=== PATIENT | male | born 1975 | race Caucasian/White ===

== ENCOUNTER → 2016-09-20 | Outpatient (CLI) | payer OTHER ==
[~2016-09-20] MED LIST: ATOR-26 PO; BUPR150T7 PO; ERGO500037 PO; GLC/500 PO; HYDR25TA4 PO; LEVO175T3 PO; LOSA25TA18 PO; OMEG10007 PO; OXYC1TAB3 PO; PRAM0.256 PO; TAMS0.4C38 PO
[2016-09-20 17:54] LABS: ALT/SGPT 46 U/L (12-78); BLOOD UREA NITROGEN 13 mg/dl (7-18); BUN/CREATININE RATIO 12.2 (10-20); CALCIUM 9.2 mg/dl (8.5-10.1); CARBON DIOXIDE 20 mmol/L (21-32); CHLORIDE 107 mmol/L (98-107); CHOLESTEROL 158 mg/dl (0-200); GLUCOSE 104 mg/dl (70-99); POTASSIUM 4.2 mmol/L (3.5-5.1); SODIUM 139 mmol/L (136-145); TRIGLYCERIDES 159 mg/dl (0-150); VERY LOW DENSITY LIPOPROT CALC 32 mg/dl
[2016-09-20 17:57] LABS: ALKALINE PHOSPHATASE 82 U/L (45-117); AST/SGOT 24 U/L (15-37); HDL CHOLESTEROL 40 mg/dl; LDL CHOLESTEROL CALCULATED 86 mg/dl
[2016-09-21 06:52] LABS: ESTIMATED AVERAGE GLUCOSE 140 mg/dl; HA1C FLAG Normal (Normal)
== END | disposition home or self-care (01) ==
LOC: C.LABBFT 11:51
PROVIDERS: ATTEND Internal Medicine
DX: E11.9 Type 2 diabetes mellitus without complications (principal); E78.5 Hyperlipidemia, unspecified; N52.9 Male erectile dysfunction, unspecified; Z30.2 Encounter for sterilization

== ENCOUNTER → 2016-09-20 | Outpatient (CLI) | payer OTHER | END | disposition home or self-care (01) | LOC: C.PATHSPEC 17:32 | PROVIDERS: ATTEND Urology | DX: Z30.2 Encounter for sterilization (principal) ==

== ENCOUNTER → 2017-01-16 | Day surgery (SDC) | payer OTHER ==
[2017-01-08 13:18] VITALS: Ht 190.5 cm; Wt 149.1 kg
[~2017-01-16] VITALS: Ht 190.5 cm; Wt 149.1 kg
[~2017-01-16] MED LIST changes: +LIDOCAINE HCL 2% 2 ML VIAL (20MG/ML) ONE; +MIDAZOLAM HCL 1 MG/ML 2ML VIAL ONE; +PROPOFOL IV EMULSION 10 MG/ML 20 ML VIAL IV ONE; +SODIUM CHLORIDE 0.9% 500ML 500 ML IV ONE
--- NOTE | 2017-01-16 08:31 | Endo History and Physical ---
History & Physical Date of Service: January 16, 2017. Chief Complaint: Screening Referring Physician: Dharmesh Ennis History of Present Illness 41 yo CM who presents for screening colonoscopy. Past Surgical History Hx Cardiac Surgery: No Hx Internal Defibrillator: No Hx Pacemaker: No Hx Abdominal Surgery: No Hx of Implantable Prosthesis: No Hx Post-Op Nausea and Vomiting: Yes Hx Cancer Surgery: No Hx Thoracic Surgery: No Hx Orthopedic: Yes (RT KNEE ARTHROSCOPY X 3, LEFT KNEE ARTHROSCOPY) Hx Urinary Tract Surgery: No Family History Polyp Social History Smoking Status: Never Smoker Hx Substance Use: No Hx Alcohol Use: No Allergies Coded Allergies: NO KNOWN DRUG ALLERGIES (Verified Allergy, Unknown, ., 01/08/17) Current Medications Reported Home Medications Medications Dose Route/Sig Max Daily Dose Days Date Category Vitamin D 40019 Unit (Ergocalciferol) 50,000 Unit Cap 50,000 Unit PO WK 01/08/17 Reported Pramipexole Dihydrochlori (Pramipexole Dihydrochloride) 0.25 Mg Tab 1 Tab PO HS 01/08/17 Reported Glucophage (Metformin Hcl) 500 Mg Tab 2 Tab PO BID 01/08/17 Reported Levothyroxine Sodium 175 Mcg Tab 1 Tab PO QAM 90 01/08/17 Reported Hctz (Hydrochlorothiazide) 25 Mg Tab 25 Mg PO QAM 01/08/17 Reported Wellbutrin Sr (Bupropion Hcl) 150 Mg Tab 150 Mg PO QAM 01/08/17 Reported Lipitor (Atorvastatin Calcium) 80 Mg Tab 80 Mg PO HS 01/08/17 Reported Vital Signs Weight (Kilograms): 149.09 Height (Feet): 6 Height (Inches): 3 Date Time Temp Pulse Resp B/P Pulse Ox O2 Delivery O2 Flow Rate FiO2 01/16/17 07:51 36.3 75 20 130/79 95 Room Air Physical Exam General Appearance: WD/WN, no apparent distress Respiratory/Chest: Auscultation: breath sounds normal Cardiovascular: Heart Auscultation: RRR Abdomen: Bowel Sounds: normal Inspection & Palpation: soft, non-distended, no tenderness, guarding & rebound Assessment and Plan Assessment: 41 yo CM who presents for screening colonoscopy. Plan: Proceed with colonoscopy.
--- NOTE | 2017-01-16 08:57 | GI REPORT ---
Procedure Date: 01/16/2017 8:33 AM Procedure: Colonoscopy Indications: Family history of colonic polyps in a first-degree relative Medicines: Monitored Anesthesia Care Complications: No immediate complications. Estimated Blood Loss: Estimated blood loss: none. Procedure: Pre-Anesthesia Assessment: - Prior to the procedure, a History and Physical was performed, and patient medications and allergies were reviewed. The patient's tolerance of previous anesthesia was also reviewed. The risks and benefits of the procedure and the sedation options and risks were discussed with the patient. All questions were answered, and informed consent was obtained. Prior Anticoagulants: The patient has taken no previous anticoagulant or antiplatelet agents. ASA Grade Assessment: III - A patient with severe systemic disease. After reviewing the risks and benefits, the patient was deemed in satisfactory condition to undergo the procedure. After I obtained informed consent, the scope was passed under direct vision. Throughout the procedure, the patient's blood pressure, pulse, and oxygen saturations were monitored continuously. The scope was introduced through the anus and advanced to the terminal ileum. The colonoscopy was performed without difficulty. The patient tolerated the procedure well. The quality of the bowel preparation was good. The terminal ileum, ileocecal valve, appendiceal orifice, and rectum were photographed. Findings: A 4 mm polyp was found in the ascending colon. The polyp was sessile. The polyp was removed with a cold snare. Resection and retrieval were complete. Scattered small-mouthed diverticula were found in the entire colon. Impression: - One 4 mm polyp in the ascending colon, removed with a cold snare. Resected and retrieved. - Diverticulosis in the entire examined colon. Recommendation: - Resume previous diet. - Continue present medications. - Repeat colonoscopy for surveillance based on pathology results. - Return to primary care physician as previously scheduled. Dwaine Ott DO 01/16/2017 8:56:55 AM This report has been signed electronically. Note Initiated On: 01/16/2017 8:33 AM I attest to the content of the Intraoperative Record and orders documented therein, exceptions below
--- NOTE | 2017-01-16 08:58 | Discharge Instructions ---
Endoscopy Patient Instructions Date / Procedure(s) Performed January 16, 2017. Colonoscopy Allergy Information Coded Allergies: NO KNOWN DRUG ALLERGIES (Verified Allergy, Unknown, ., 01/08/17) Discharge Date / Findings January 16, 2017. Colon polyp Diverticulosis Medication Instructions Stopped Medication(s): Metformin Reported Home Medications Medications Dose Route/Sig Max Daily Dose Days Date Category Vitamin D 69314 Unit (Ergocalciferol) 50,000 Unit Cap 50,000 Unit PO WK 01/08/17 Reported Pramipexole Dihydrochlori (Pramipexole Dihydrochloride) 0.25 Mg Tab 1 Tab PO HS 01/08/17 Reported Glucophage (Metformin Hcl) 500 Mg Tab 2 Tab PO BID 01/08/17 Reported Levothyroxine Sodium 175 Mcg Tab 1 Tab PO QAM 90 01/08/17 Reported Hctz (Hydrochlorothiazide) 25 Mg Tab 25 Mg PO QAM 01/08/17 Reported Wellbutrin Sr (Bupropion Hcl) 150 Mg Tab 150 Mg PO QAM 01/08/17 Reported Lipitor (Atorvastatin Calcium) 80 Mg Tab 80 Mg PO HS 01/08/17 Reported OK to resume all medications today as prescribed Provider Instructions Activity Restrictions - No exercising or heavy lifting for 24 hours. - Do not drink alcohol the day of the procedure. - Do not drive a car or operate machinery until the day after the procedure. - Do not make any important decisions or sign important papers in 24 hours after the procedure. Following Day: - Return to full activity which may include returning to work/school. Diet Start your diet with liquids and light foods (jello, soup, juice, toast). Then eat your usual diet if not nauseated. Treatment For Common After Affects For mild abdominal pain, bloating, or excessive gas: - Rest - Eat lightly - Lie on right side Follow-Up Information Follow-up with Dharmesh Ennis as scheduled Anesthesia Information What You Should Know You have had a procedure that required some medicine to reduce anxiety and discomfort. This treatment is called moderate sedation. After receiving the treatment, you may be sleepy, but you will be able to breathe on your own. The effects of the treatment may last for several hours. Follow these instructions along with Activity/Diet recommendations noted above: * Do NOT do anything where dizziness or clumsiness would be dangerous. * Rest quietly at home today, then you can be up and about tomorrow. * Have a responsible person stay with you the rest of today. * You may have had an I.V. today. If so, you may take the dressing off later today. Recommendations Call your doctor if: * Trouble breathing * Continuous vomiting for more than 24 hours * Temperature above 101 degrees * Severe abdominal pain or bloating * Pain not relieved by pain medicine ordered * There is increased drainage or redness from any incision * A large amount of rectal bleeding greater than 2-3 tablespoons. (If you had a polyp/s removed or have hemorrhoids, a small amount of blood - from the rectum is to be expected.) * You have any unanswered questions or concerns. IN THE EVENT OF A SERIOUS EMERGENCY, GO TO THE NEAREST EMERGENCY ROOM Your discharge instructions were prepared by provider Dwaine Ott. Patient Instructions Signature Page [employer] [employer] Patient (or Guardian) Signature/Date: I have read and understand the instructions given to me by my caregivers. Caregiver/RN/Doctor Signature/Date: The above-named patient and/or guardian has received patient instructions on this date. + Original Patient Signature Page (only) stays with chart. Please make copy for patient.
--- NOTE | 2017-01-16 09:14 | Anesthesiology Progress Note ---
Anesthesia Post Op Note Date & Time January 16, 2017 at 09:14 Vital Signs Vital Signs Past 12 Hours Date Time Temp Pulse Resp B/P Pulse Ox O2 Delivery O2 Flow Rate FiO2 01/16/17 08:58 36.8 90 20 119/74 95 Room Air 01/16/17 07:51 36.3 75 20 130/79 95 Room Air Notes Mental Status: alert / awake / arousable, participated in evaluation Pt Amnestic to Procedure: Yes Nausea / Vomiting: adequately controlled Pain: adequately controlled Airway Patency, RR, SpO2: stable & adequate BP & HR: stable & adequate Hydration State: stable & adequate Anesthetic Complications: no major complications apparent
[2017-01-16 09:29] VITALS: BP 122/83; PULSE 84; O2SAT 96
== END | disposition home or self-care (01) ==
LOC: C.GI 07:01
PROVIDERS: ATTEND Internal Medicine
DX: Z12.11 Encounter for screening for malignant neoplasm of colon (principal); D12.2 Benign neoplasm of ascending colon; K57.30 Diverticulosis of large intestine without perforation or abscess without bleeding; Z83.71 Family history of colonic polyps

== ENCOUNTER → 2017-02-15 | Outpatient (CLI) | payer OTHER ==
[~2017-02-15] MED LIST changes: -LIDOCAINE HCL 2% 2 ML VIAL (20MG/ML) ONE; -MIDAZOLAM HCL 1 MG/ML 2ML VIAL ONE; -PROPOFOL IV EMULSION 10 MG/ML 20 ML VIAL IV ONE; -SODIUM CHLORIDE 0.9% 500ML 500 ML IV ONE
[2017-02-15 12:37] LABS: ALT/SGPT 30 U/L (12-78); AST/SGOT 16 U/L (15-37); BLOOD UREA NITROGEN 12 mg/dl (7-18); BUN/CREATININE RATIO 11.9 (10-20); CALCIUM 9.1 mg/dl (8.5-10.1); CARBON DIOXIDE 25 mmol/L (21-32); CHLORIDE 106 mmol/L (98-107); CHOLESTEROL 119 mg/dl (0-200); CREATININE 0.99 mg/dl (0.60-1.40); GLUCOSE 123 mg/dl (70-99); POTASSIUM 3.9 mmol/L (3.5-5.1); SODIUM 138 mmol/L (136-145); TRIGLYCERIDES 93 mg/dl (0-150); VERY LOW DENSITY LIPOPROT CALC 19 mg/dl
[2017-02-15 12:50] LABS: ESTIMATED AVERAGE GLUCOSE 128 mg/dl; HA1C FLAG Normal (Normal)
[2017-02-15 13:03] LABS: ALKALINE PHOSPHATASE 82 U/L (45-117); CHOLESTEROL/HDL RATIO 3.1; HDL CHOLESTEROL 38 mg/dl; LDL CHOLESTEROL CALCULATED 62 mg/dl; TOTAL IRON BINDING CAPACITY 344 mcg/dl (250-450)
[2017-02-19 16:31] LABS: ILGF1 Z SCORE MALE 0.4 SD (-2.0 - +2.0)
== END | disposition home or self-care (01) ==
LOC: C.LABBFT 08:57
PROVIDERS: ATTEND Internal Medicine
DX: G25.81 Restless legs syndrome (principal); E29.1 Testicular hypofunction; E66.01 Morbid (severe) obesity due to excess calories; M79.1 Myalgia; E03.9 Hypothyroidism, unspecified; E11.9 Type 2 diabetes mellitus without complications

== ENCOUNTER 2017-03-03 09:15 | Inpatient (IN) | payer OTHER ==
[~2017-03-03] VITALS: Ht 190.5 cm; Wt 151.2 kg
[~2017-03-03 09:15] MED LIST changes: -LOSA25TA18 PO; -OMEG10007 PO; -OXYC1TAB3 PO; -TAMS0.4C38 PO
[2017-03-03] MEDS ORDERED: LOSA25TA18 PO (10:05)
[2017-03-03] MEDS ORDERED: SODIUM CHLORIDE 0.9% 1000ML 1,000 ML IV STA ×2 (10:12)
[2017-03-03] MEDS ORDERED: ONDANSETRON INJ 2 MG/ML 2 ML VIAL IV STA (10:12)
[2017-03-03 10:19] LABS: BASO % 0.3 %; BASO ABS # 0.02 K/uL (0-0.2); COMPLETE YES; IG% 0.3 %; LYMPH % 15.1 %; MEAN CELL VOLUME 82.4 fL (80-100); MEAN CORPUSCULAR HEMOGLOBIN 27.6 pg (25-34); MEAN CORPUSCULAR HGB CONC 33.5 g/dl (32-36); MEAN PLATELET VOLUME 9.3 fL (7.4-10.4); MONO % 4.5 %; NEUT % 76.8 %; PLATELET COUNT 224 K/uL (130-400); RED BLOOD COUNT 5.22 M/uL (4.7-6.1); WHITE BLOOD COUNT 7.93 K/uL (4.8-10.8)
[2017-03-03 10:22] LABS: URINE APPEARANCE TURBID (CLEAR); URINE COLOR DK YELLOW; URINE EPITHELIAL CELL AUTO 0-5 /lpf (0-5); URINE NITRITE NEG (NEG); URINE SPECIFIC GRAVITY 1.027 (1.000-1.030); UROBILINOGEN NEG (NEG); ZZUR CULT IF INDIC CLEAN CATCH NO
[2017-03-03 10:26] LABS: BUN/CREATININE RATIO 9.9 (10-20); CREATININE 1.1 mg/dl (0.60-1.40); POTASSIUM 4.2 mmol/L (3.5-5.1)
--- NOTE | 2017-03-03 10:26 | EMERGENCY ROOM VISIT NOTE ---
History Report prepared by Kimberly: Ronda Ruiz Under the Supervision of: Dr. Avni Patiño D.O. First contact with patient: 10:09 Chief Complaint: FLANK PAIN Stated Complaint: PAIN R FLANK PAIN History of Present Illness The patient is a 41 year old male who presents to the Emergency Room with complaints of persistent right flank pain starting 0630 this morning. He rates his discomfort as an 8/10 in severity. His had pain in the RUQ at first, but it seems to have moved into his back. He reports nausea. He denies any vomiting, chest pain, SOB, or fever. His urine was dark like ice tea today. He notes that he did eat some unhealthy food at a fair last night. He admits to occasional alcohol use. He denies any tobacco use. He has not had any abdominal surgeries before. He still has his gallbladder. He denies any history of kidney stones. Source of History: patient Onset: 0630 this morning Position: other (right flank) Symptom Intensity: 8/10 Quality: other (pain) Timing: other (persistent) Associated Symptoms: + nausea, No fevers, No chest pain, No SOB, No vomiting Note: Pt reports dark urine. Review of Systems See HPI for pertinent positives & negatives. A total of 10 systems reviewed and were otherwise negative. Past Medical & Surgical Medical Problems: (1) Diabetes (2) Hydronephrosis, right (3) Hypertension (4) Right ureteral calculus Family History Cancer Diabetes mellitus Gallbladder disease Social History Smoking Status: Never Smoker Marital Status: Housing Status: lives with family Occupation Status: disabled Current/Historical Medications Scheduled Atorvastatin (Lipitor), 80 MG PO HS Bupropion Hcl (Wellbutrin Sr), 150 MG PO QAM Ergocalciferol (Vitamin D 45170 Unit), 50,000 UNIT PO WK Levothyroxine Sodium (Levothyroxine Sodium), 1 TAB PO QAM Losartan Potassium (Cozaar), 25 MG PO DAILY Metformin Hcl (Glucophage), 2 TAB PO BID Pramipexole Dihydrochloride (Pramipexole Dihydrochlori), 1 TAB PO HS Tamsulosin Hcl (Flomax), 0.4 MG PO DAILY Scheduled PRN Oxycodone Immediate Rel Tab (Roxicodone Ir), 1-2 TAB PO Q4H PRN for Severe Pain Allergies Coded Allergies: NO KNOWN DRUG ALLERGIES (Verified Allergy, Unknown, ., 03/03/17) Physical Exam Vital Signs Date Time Temp Pulse Resp B/P (MAP) Pulse Ox O2 Delivery O2 Flow Rate FiO2 03/03/17 13:40 99 Room Air 03/03/17 13:15 61 18 124/71 99 Room Air 03/03/17 11:00 64 18 131/90 96 Room Air 03/03/17 09:29 36.4 72 18 157/89 96 Room Air Physical Exam GENERAL: Patient is awake, alert, and very anxious appearing and uncomfortable , appears to be in moderate pain. EYES: The conjunctivae are clear. The pupils are round and reactive. EARS, NOSE, MOUTH AND THROAT: The nose is without any evidence of any deformity. Mucous membranes are moist tongue is midline NECK: The neck is nontender and supple. RESPIRATORY: Normal respiratory effort is noted there is no evidence of wheezing rhonchi or rales CARDIOVASCULAR: Regular rate and rhythm noted there no murmurs rubs or gallops normal S1 normal S2 GASTROINTESTINAL: The abdomen is moderately distended but soft, significant RUQ tenderness to palpation, no guarding or rigidity. BACK: No midline tenderness or or step-off noted range of motion in flexion extension as well as rotation no signs of muscle spasm noted MUSCULOSKELETAL/EXTREMITIES: There is no evidence of gross deformity full range of motion is noted in the hips and shoulders SKIN: There is no obvious evidence of any rash. There are no petechiae, pallor or cyanosis noted. NEUROLOGIC: Patient is awake alert and oriented x3 Medical Decision & Procedures ER Provider Diagnostic Interpretation: Radiology results as stated below per my review and radiologist interpretation: CT SCAN OF THE ABDOMEN AND PELVIS WITHOUT IV CONTRAST CLINICAL HISTORY: Right flank pain. COMPARISON STUDY: Abdominal ultrasound dated 07/12/2014. TECHNIQUE: CT scan of the abdomen and pelvis is performed from the lung bases to the proximal femora. Images are reviewed in the axial, sagittal, and coronal planes. IV contrast was not administered for this examination. Automated dose control exposure was utilized. CT DOSE: 1865.77 mGy.cm FINDINGS: Lung bases: The heart is normal in size and without pericardial effusion. A tiny calcified granulomas in the right lower lobe. The lung bases are otherwise clear. There is a tiny hiatal hernia. Liver: The unenhanced liver is enlarged, measuring 19.4 cm in length. The liver demonstrates diffusely diminished attenuation consistent with hepatic steatosis. Fatty sparing is seen adjacent to gallbladder fossa. There is no intrahepatic biliary ductal dilatation. Gallbladder: Unremarkable. Spleen: The spleen is enlarged measuring 14.8 cm in length. Pancreas: The unenhanced pancreas is grossly unremarkable. Adrenal glands: Unremarkable. Kidneys: The unenhanced kidneys are normal in size. There is a 9 mm obstructing calculus in the right proximal ureter at the level of L3 seen on axial image #242. This causes mild right hydroureteronephrosis, and there is associated right-sided perinephric stranding. An additional 6 mm nonobstructing calculus is seen in the right lower pole. There is a 4 mm nonobstructing left calculus. No left-sided hydronephrosis is seen. There is no evidence of contour deforming renal mass lesion. Abdominal vasculature: The abdominal aorta is normal in course and caliber. Bowel: The small bowel and colon are normal in course and caliber. There is moderate to advanced diverticulosis of the left colon without CT evidence of acute diverticulitis. The appendix is well-visualized and normal. Peritoneum: There is no intraperitoneal free air or abdominal ascites. There is a small fat-containing umbilical hernia. Lymphadenopathy: None. Pelvic viscera: The bladder, prostate, and seminal vesicles are normal as visualized. Skeletal structures: No lytic or blastic lesions are seen. IMPRESSION: 1. There is a 9 mm obstructing calculus in the right proximal ureter. This causes mild right hydroureteronephrosis. 2. Additional bilateral nonobstructing renal calculi are identified as above. 3. Hepatomegaly and hepatic steatosis. 4. Splenomegaly. 5. There is moderate to advanced diverticulosis of the left colon without CT evidence of acute diverticulitis. Electronically signed by: Cadnido Millan M.D. 03/03/2017 11:07 AM Dictated Date/Time: 03/03/2017 10:57 AM Laboratory Results 03/03/17 09:45 Red Blood Count 5.22, Mean Corpuscular Volume 82.4, Mean Corpuscular Hemoglobin 27.6, Mean Corpuscular Hemoglobin Concent 33.5, Mean Platelet Volume 9.3, Neutrophils (%) (Auto) 76.8, Lymphocytes (%) (Auto) 15.1, Monocytes (%) (Auto) 4.5, Eosinophils (%) (Auto) 3.0, Basophils (%) (Auto) 0.3, Neutrophils # (Auto) 6.09, Lymphocytes # (Auto) 1.20, Monocytes # (Auto) 0.36, Eosinophils # (Auto) 0.24, Basophils # (Auto) 0.02 03/03/17 09:45 Test 03/03/17 00:00 03/03/17 09:45 03/03/17 09:49 Urine Color DK YELLOW Urine Appearance TURBID (CLEAR) Urine pH 5.0 (4.5-7.5) Urine Specific [place] 1.027 (1.000-1.030) Urine Protein 1+ (NEG) Urine Glucose (UA) NEG (NEG) Urine Ketones TRACE (NEG) Urine Occult Blood 3+ (NEG) Urine Nitrite NEG (NEG) Urine Bilirubin NEG (NEG) Urine Urobilinogen NEG (NEG) Urine Leukocyte Esterase TRACE (NEG) Urine WBC (Auto) 1-5 /hpf (0-5) Urine RBC (Auto) 5-10 /hpf (0-4) Urine Hyaline Casts (Auto) 1-5 /lpf (0-5) Urine Epithelial Cells (Auto) 0-5 /lpf (0-5) Urine Bacteria (Auto) NEG (NEG) Urine Crystals CALCIUM OXALATE (NONE White Blood Count 7.93 K/uL (4.8-10.8) Red Blood Count 5.22 M/uL (4.7-6.1) Hemoglobin 14.4 g/dL (14.0-18.0) Hematocrit 43.0 % (42-52) Mean Corpuscular Volume 82.4 fL (80-100) Mean Corpuscular Hemoglobin 27.6 pg (25-34) Mean Corpuscular Hemoglobin Concent 33.5 g/dl (32-36) Platelet Count 224 K/uL (130-400) Mean Platelet Volume 9.3 fL (7.4-10.4) Neutrophils (%) (Auto) 76.8 % Lymphocytes (%) (Auto) 15.1 % Monocytes (%) (Auto) 4.5 % Eosinophils (%) (Auto) 3.0 % Basophils (%) (Auto) 0.3 % Neutrophils # (Auto) 6.09 K/uL (1.4-6.5) Lymphocytes # (Auto) 1.20 K/uL (1.2-3.4) Monocytes # (Auto) 0.36 K/uL (0.11-0.59) Eosinophils # (Auto) 0.24 K/uL (0-0.5) Basophils # (Auto) 0.02 K/uL (0-0.2) RDW Standard Deviation 41.5 fL (36.4-46.3) RDW Coefficient of Variation 13.7 % (11.5-14.5) Immature Granulocyte % (Auto) 0.3 % Immature Granulocyte # (Auto) 0.02 K/uL (0.00-0.02) Anion Gap 7.0 mmol/L (3-11) Est Creatinine Clear Calc Drug Dose 139.0 ml/min Estimated GFR () 96.1 Estimated GFR (Non- 82.9 BUN/Creatinine Ratio 9.9 (10-20) Calcium Level 9.0 mg/dl (8.5-10.1) Total Bilirubin 0.6 mg/dl (0.2-1) Aspartate Amino Transf (AST/SGOT) 14 U/L (15-37) Alanine Aminotransferase (ALT/SGPT) 26 U/L (12-78) Alkaline Phosphatase 86 U/L (45-117) Total Protein 7.6 gm/dl (6.4-8.2) Albumin 3.8 gm/dl (3.4-5.0) Globulin 3.8 gm/dl (2.5-4.0) Albumin/Globulin Ratio 1.0 (0.9-2) Lipase 131 U/L (73-393) Hepatitis B Surface Antigen NEG (NEG) Bedside Glucose 106 mg/dl (70-99) Laboratory results per my review. Medications Administered Medications (Trade) Dose Ordered Sig/Miguel A Route Start Time Stop Time Status Last Admin Dose Admin Sodium Chloride 1,000 ml @ 999 mls/hr Q1H1M STAT IV 03/03/17 10:12 03/03/17 11:12 DC 03/03/17 10:12 999 MLS/HR Morphine Sulfate (MoRPHine SULFATE INJ) 4 mg Q15M PRN IV 03/03/17 10:15 03/03/17 16:19 DC 03/03/17 15:03 4 MG Ondansetron HCl (Zofran Inj) 4 mg NOW STAT IV 03/03/17 10:12 03/03/17 10:13 DC 03/03/17 10:12 4 MG Tamsulosin HCl (Flomax Cap) 0.4 mg NOW ONCE PO 03/03/17 13:00 03/03/17 13:01 DC 03/03/17 13:10 0.4 MG ECG Indication: back/shoulder pain, nausea Rate (beats per minute): 70 Rhythm: normal sinus Findings: no ectopy, other (no acute ST segment abnormality) Comparison ECG Date: no prior available ED Course 1010: The patient was evaluated in room C9. A complete history and physical examination were performed. 1012: Zofran Inj 4 mg IV, NSS 1000 ml @ 125 mls/hr IV, NSS 1000 ml @ 999 mls/hr IV. 1015: Morphine Sulfate 4 mg IV. 1300: Flomax Cap 0.4 mg PO. 1305: I discussed the patient's case with Dr. Mclaughlin [facility] urology. He recommends outpatient follow up. 1315: I reevaluated the patient. He is having more pain and not feeling up to going home. I discussed results and treatment plan with him. He verbalizes agreement and understanding. The patient will be evaluated for further management and care. 1415: I discussed the patient's case with Dr. Garduno, [facility] hospitalist. The patient will be evaluated for further management. Medical Decision Prior records/ancillary studies reviewed. Triage Nursing notes reviewed. Additional history obtained from family. The patient's history was concerning for abdominal pain. Differential diagnosis: Etiologies such as appendicitis, diverticulitis, PUD, biliary pathology, UTI, pancreatitis, obstruction, mesenteric ischemia, aortic pathology, infections, inflammatory bowel disease, renal colic, as well as others were entertained. Medication Reconciliation: I attest that I have personally reviewed the patient' s current medications list. Patient was found to have a slightly elevated blood pressure due to circumstances. I do not believe that the patient requires hypertension monitoring. The patient is a 41-year-old male who presented to the emergency department for evaluation of right sided abdominal pain. The patient had very colic type pain. I felt his condition was consistent with a kidney stone. The patient's CAT scan showed a very large proximal right ureteral calculus. He was treated with IV fluids IV pain medicine and IV antiemetics. He was also started on Flomax. Initially the patient was feeling much better and felt that he might be able to go home. I discussed his case with the on-call urologist with the group that he had seen in the past and they agreed that he could follow-up as an outpatient but would likely need lithotripsy or another intervention. I discussed this with the patient and his pain had returned. For this reason I discussed his case with the on-call [facility] hospitalist. They've agreed to evaluate the patient in the emergency department for further management and disposition. Consults Time Called: [phone] Consulting Physician: Dr. Mclaughlin [facility] urology Returned Call: [phone] I discussed the patient's case with him. He recommends outpatient follow up. Additional Consults: Time Called: 1320 Consulted Physician: Dr. Garduno [facility] hospitalist Returned Call: [phone] Additional Comments: I discussed the patient's case with him. The patient will be evaluated for further management. Impression Primary Impression: Kidney stone Scribe Attestation The scribe's documentation has been prepared under my direction and personally reviewed by me in its entirety. I confirm that the note above accurately reflects all work, treatment, procedures, and medical decision making performed by me. Departure Information Dispostion Being Evaluated By Hospitalist Prescriptions Oxycodone Immediate Rel Tab (ROXICODONE IR) 5 Mg Tab 1-2 TAB PO Q4H Y for Severe Pain, #25 TAB Prov: Avni Patiño, DO 03/03/17 Tamsulosin Hcl (FLOMAX) 0.4 Mg Cap 0.4 MG PO DAILY, #14 CAP Prov: Avni Patiño, DO 03/03/17 Referrals Dharmesh Ennis M.D. (PCP) Patient Instructions My [facility]
[2017-03-03] MEDS: MoRPHine SULFATE 4 MG/ML 1 ML CARP\\VIAL IV PRN ×4 (10:33→15:03)
[2017-03-03 10:45] LABS: MANUAL MICROSCOPIC REQUIRED? NO; REVIEW REQ? YES; URINE BILIRUBIN NEG (NEG)
--- NOTE | 2017-03-03 11:08 | DIAGNOSTIC IMAGING REPORT ---
CT SCAN OF THE ABDOMEN AND PELVIS WITHOUT IV CONTRAST CLINICAL HISTORY: Right flank pain. COMPARISON STUDY: Abdominal ultrasound dated 07/12/2014. TECHNIQUE: CT scan of the abdomen and pelvis is performed from the lung bases to the proximal femora. Images are reviewed in the axial, sagittal, and coronal planes. IV contrast was not administered for this examination. Automated dose control exposure was utilized. CT DOSE: 1865.77 mGy.cm FINDINGS: Lung bases: The heart is normal in size and without pericardial effusion. A tiny calcified granulomas in the right lower lobe. The lung bases are otherwise clear. There is a tiny hiatal hernia. Liver: The unenhanced liver is enlarged, measuring 19.4 cm in length. The liver demonstrates diffusely diminished attenuation consistent with hepatic steatosis. Fatty sparing is seen adjacent to gallbladder fossa. There is no intrahepatic biliary ductal dilatation. Gallbladder: Unremarkable. Spleen: The spleen is enlarged measuring 14.8 cm in length. Pancreas: The unenhanced pancreas is grossly unremarkable. Adrenal glands: Unremarkable. Kidneys: The unenhanced kidneys are normal in size. There is a 9 mm obstructing calculus in the right proximal ureter at the level of L3 seen on axial image #242. This causes mild right hydroureteronephrosis, and there is associated right-sided perinephric stranding. An additional 6 mm nonobstructing calculus is seen in the right lower pole. There is a 4 mm nonobstructing left calculus. No left-sided hydronephrosis is seen. There is no evidence of contour deforming renal mass lesion. Abdominal vasculature: The abdominal aorta is normal in course and caliber. Bowel: The small bowel and colon are normal in course and caliber. There is moderate to advanced diverticulosis of the left colon without CT evidence of acute diverticulitis. The appendix is well-visualized and normal. Peritoneum: There is no intraperitoneal free air or abdominal ascites. There is a small fat-containing umbilical hernia. Lymphadenopathy: None. Pelvic viscera: The bladder, prostate, and seminal vesicles are normal as visualized. Skeletal structures: No lytic or blastic lesions are seen. IMPRESSION: 1. There is a 9 mm obstructing calculus in the right proximal ureter. This causes mild right hydroureteronephrosis. 2. Additional bilateral nonobstructing renal calculi are identified as above. 3. Hepatomegaly and hepatic steatosis. 4. Splenomegaly. 5. There is moderate to advanced diverticulosis of the left colon without CT evidence of acute diverticulitis. Electronically signed by: Candido Millan M.D. 03/03/2017 11:07 AM Dictated Date/Time: 03/03/2017 10:57 AM
[2017-03-03] MEDS ORDERED: KETOROLAC TROMETHAMINE 30 MG/ML VIAL IV STA (12:48)
[2017-03-03] MEDS ORDERED: OXYC1TAB3 PO (12:55)
[2017-03-03] MEDS ORDERED: TAMS0.4C38 PO (12:55)
[2017-03-03] MEDS ORDERED: TAMSULOSIN HCL 0.4 MG CAP PO ONE (13:00)
[2017-03-03 13:40] VITALS: O2SAT 99; Ht 190.5 cm; Wt 151.2 kg
[2017-03-03] MEDS ORDERED: ZOLPIDEM TARTRATE 5 MG TAB PO PRN (15:15)
[2017-03-03] MEDS ORDERED: ACETAMINOPHEN 325 MG TAB PO PRN (15:15)
[2017-03-03] MEDS ORDERED: ONDANSETRON INJ 2 MG/ML 2 ML VIAL IV PRN (15:15)
[2017-03-03] MEDS ORDERED: HYDROmorphone INJ 1 MG/ML SYR IV PRN (15:15)
[2017-03-03 15:56] VITALS: O2SAT 99
--- NOTE | 2017-03-03 17:24 | History and Physical ---
History & Physical Date & Time of Service: Mar 03, 2017 at 17:10 Chief Complaint: Right Hydronephrosis, Right Ureteral Calculus Primary Care Physician: Dharmesh Ennis M.D. History of Present Illness Source: patient, spouse The patient is a 41-year-old male who presents emergency department with persistent right flank pain started at 0630 hrs. this morning prior to arrival. The pain is sometimes in his right upper quadrant, toward his right lower quadrant, and sometimes toward his back. He's had nausea but no vomiting. He' s had no chest pain, shortness of breath or fever. His urine was very dark by a lot of iced tea. He reports it is always normal color. He has not had previous occurrences such as this. There is no history of kidney stones in the family and he has never had kidney stones spell. He does report having different food intake at a fair last evening. Past Medical/Surgical History Medical Problems: (1) Diabetes Status: Chronic (2) Hypertension Status: Chronic Family History Cancer Diabetes mellitus Gallbladder disease Noncontributory Social History Smoking Status: Never Smoker Smokeless Tobacco Use: No Alcohol Use: none Drug Use: none Marital Status: Housing status: lives with family Occupational Status: disabled Immunizations History of Influenza Vaccine: Unknown History of Tetanus Vaccine?: Unknown History of Pneumococcal: Unknown History of Hepatitis B Vaccine: Unknown Multi-Drug Resistant Organisms History of MDRO: No Allergies Coded Allergies: NO KNOWN DRUG ALLERGIES (Verified Allergy, Unknown, ., 03/03/17) Home Medications Scheduled Atorvastatin (Lipitor), 80 MG PO HS Bupropion Hcl (Wellbutrin Sr), 150 MG PO QAM Ergocalciferol (Vitamin D 14563 Unit), 50,000 UNIT PO WK Levothyroxine Sodium (Levothyroxine Sodium), 1 TAB PO QAM Losartan Potassium (Cozaar), 25 MG PO DAILY Metformin Hcl (Glucophage), 2 TAB PO BID Pramipexole Dihydrochloride (Pramipexole Dihydrochlori), 1 TAB PO HS Tamsulosin Hcl (Flomax), 0.4 MG PO DAILY Scheduled PRN Oxycodone Immediate Rel Tab (Roxicodone Ir), 1-2 TAB PO Q4H PRN for Severe Pain Review of Systems The patient denies chest pain, palpitations, shortness of breath, cough, lower extremity swelling, sore throat, fevers, chills, sweats, weight change, fatigue , vomiting, pelvic pain, blood in urine or stool, dysuria, urinary frequency or urgency, lightheadedness, dizziness, headache, memory loss, rash, abnormal bruising or bleeding, imbalance, focal or generalized weakness, numbness or tingling in arms or legs, arthralgias or myalgias, back or neck pain, night sweats, or allergy symptoms. The review of systems is otherwise negative other than for that already noted above, and at least 10 systems have been reviewed. Physical Exam Vital Signs Date Time Temp Pulse Resp B/P (MAP) Pulse Ox O2 Delivery O2 Flow Rate FiO2 03/03/17 15:56 36.4 61 18 124/71 99 03/03/17 13:40 99 Room Air 03/03/17 13:15 61 18 124/71 99 Room Air 03/03/17 11:00 64 18 131/90 96 Room Air 03/03/17 09:29 36.4 72 18 157/89 96 Room Air The patient is awake, well-developed and adequately nourished, alert and oriented 3, normocephalic and atraumatic, lying in bed and in intermittent acute distress when pain medication wears off. HEENT--PERRL, EOMI, mucous membranes and oropharynx dry. Neck--supple, no JVD or bruits, thyroid normal, trachea midline, no adenopathy. Heart--normal S1 and S2, no extra beats, no murmurs, rubs or gallops. Lungs--clear bilaterally with good air movement, no respiratory distress, no accessory muscle use. Abdomen--normal bowel sounds and soft, tender right side of abdomen and flank, nondistended, no hernias or masses, no organomegaly. Extremities--no cyanosis, clubbing or edema. There are good distal pulses b/l. Dermatologic--normal skin turgor, normal color, warm and dry, no abnormal lymph nodes, no rash. Neurologic--cranial nerves II through XII grossly intact, motor and sensory examination normal. Rheumatologic--normal range of motion, nontender, muscles and joints. Psychiatric--normal affect. Diagnostics Laboratory Results Results Past 24 Hours Test 03/03/17 00:00 03/03/17 09:45 03/03/17 09:49 Range/Units Urine Color DK YELLOW Urine Appearance TURBID CLEAR Urine pH 5.0 4.5-7.5 Urine Specific [place] 1.027 1.000-1.030 Urine Protein 1+ NEG Urine Glucose (UA) NEG NEG Urine Ketones TRACE NEG Urine Occult Blood 3+ NEG Urine Nitrite NEG NEG Urine Bilirubin NEG NEG Urine Urobilinogen NEG NEG Urine Leukocyte Esterase TRACE NEG Urine WBC (Auto) 1-5 0-5 /hpf Urine RBC (Auto) 5-10 0-4 /hpf Urine Hyaline Casts (Auto) 1-5 0-5 /lpf Urine Epithelial Cells (Auto) 0-5 0-5 /lpf Urine Bacteria (Auto) NEG NEG Urine Crystals CALCIUM OXALATE NONE PRSENT White Blood Count 7.93 4.8-10.8 K/uL Red Blood Count 5.22 4.7-6.1 M/uL Hemoglobin 14.4 14.0-18.0 g/dL Hematocrit 43.0 42-52 % Mean Corpuscular Volume 82.4 80-100 fL Mean Corpuscular Hemoglobin 27.6 25-34 pg Mean Corpuscular Hemoglobin Concent 33.5 32-36 g/dl Platelet Count 224 130-400 K/uL Mean Platelet Volume 9.3 7.4-10.4 fL Neutrophils (%) (Auto) 76.8 % Lymphocytes (%) (Auto) 15.1 % Monocytes (%) (Auto) 4.5 % Eosinophils (%) (Auto) 3.0 % Basophils (%) (Auto) 0.3 % Neutrophils # (Auto) 6.09 1.4-6.5 K/uL Lymphocytes # (Auto) 1.20 1.2-3.4 K/uL Monocytes # (Auto) 0.36 0.11-0.59 K/uL Eosinophils # (Auto) 0.24 0-0.5 K/uL Basophils # (Auto) 0.02 0-0.2 K/uL RDW Standard Deviation 41.5 36.4-46.3 fL RDW Coefficient of Variation 13.7 11.5-14.5 % Immature Granulocyte % (Auto) 0.3 % Immature Granulocyte # (Auto) 0.02 0.00-0.02 K/uL Sodium Level 138 136-145 mmol/L Potassium Level 4.2 3.5-5.1 mmol/L Chloride Level 107 98-107 mmol/L Carbon Dioxide Level 24 21-32 mmol/L Anion Gap 7.0 3-11 mmol/L Blood Urea Nitrogen 11 7-18 mg/dl Creatinine 1.10 0.60-1.40 mg/dl Est Creatinine Clear Calc Drug Dose 139.0 ml/min Estimated GFR () 96.1 Estimated GFR (Non- 82.9 BUN/Creatinine Ratio 9.9 10-20 Random Glucose 112 70-99 mg/dl Calcium Level 9.0 8.5-10.1 mg/dl Total Bilirubin 0.6 0.2-1 mg/dl Aspartate Amino Transf (AST/SGOT) 14 15-37 U/L Alanine Aminotransferase (ALT/SGPT) 26 12-78 U/L Alkaline Phosphatase 86 45-117 U/L Total Protein 7.6 6.4-8.2 gm/dl Albumin 3.8 3.4-5.0 gm/dl Globulin 3.8 2.5-4.0 gm/dl Albumin/Globulin Ratio 1.0 0.9-2 Lipase 131 73-393 U/L Hepatitis B Surface Antigen NEG NEG Hepatitis C Antibody NEG NEG Bedside Glucose 106 70-99 mg/dl Diagnostic Radiology Patient Name: KERI CERVANTES Unit Number: [id number] Dictated: 03/03/171056 Transcribed: 03/03/171056 EV Printed Date/Time: [~ rep prt dt]/[~ rep prt tm] [~ rep ct labl] - [~ rep ct ivnm] [facility] [place] [address] Dictated: 03/03/171056 Transcribed: 03/03/171056 EV Printed Date/Time: [~ rep prt dt]/[~ rep prt tm] [~ rep ct labl] - [~ rep ct ivnm] CT SCAN OF THE ABDOMEN AND PELVIS WITHOUT IV CONTRAST CLINICAL HISTORY: Right flank pain. COMPARISON STUDY: Abdominal ultrasound dated 07/12/2014. TECHNIQUE: CT scan of the abdomen and pelvis is performed from the lung bases to the proximal femora. Images are reviewed in the axial, sagittal, and coronal planes. IV contrast was not administered for this examination. Automated dose control exposure was utilized. CT DOSE: 1865.77 mGy.cm FINDINGS: Lung bases: The heart is normal in size and without pericardial effusion. A tiny calcified granulomas in the right lower lobe. The lung bases are otherwise clear. There is a tiny hiatal hernia. Liver: The unenhanced liver is enlarged, measuring 19.4 cm in length. The liver demonstrates diffusely diminished attenuation consistent with hepatic steatosis. Fatty sparing is seen adjacent to gallbladder fossa. There is no intrahepatic biliary ductal dilatation. Gallbladder: Unremarkable. Spleen: The spleen is enlarged measuring 14.8 cm in length. Pancreas: The unenhanced pancreas is grossly unremarkable. Adrenal glands: Unremarkable. Kidneys: The unenhanced kidneys are normal in size. There is a 9 mm obstructing calculus in the right proximal ureter at the level of L3 seen on axial image #242. This causes mild right hydroureteronephrosis, and there is associated right-sided perinephric stranding. An additional 6 mm nonobstructing calculus is seen in the right lower pole. There is a 4 mm nonobstructing left calculus. No left-sided hydronephrosis is seen. There is no evidence of contour deforming renal mass lesion. Abdominal vasculature: The abdominal aorta is normal in course and caliber. Bowel: The small bowel and colon are normal in course and caliber. There is moderate to advanced diverticulosis of the left colon without CT evidence of acute diverticulitis. The appendix is well-visualized and normal. Peritoneum: There is no intraperitoneal free air or abdominal ascites. There is a small fat-containing umbilical hernia. Lymphadenopathy: None. Pelvic viscera: The bladder, prostate, and seminal vesicles are normal as visualized. Skeletal structures: No lytic or blastic lesions are seen. IMPRESSION: 1. There is a 9 mm obstructing calculus in the right proximal ureter. This causes mild right hydroureteronephrosis. 2. Additional bilateral nonobstructing renal calculi are identified as above. 3. Hepatomegaly and hepatic steatosis. 4. Splenomegaly. 5. There is moderate to advanced diverticulosis of the left colon without CT evidence of acute diverticulitis. Electronically signed by: Candido Millan M.D. 03/03/2017 11:07 AM Dictated Date/Time: 03/03/2017 10:57 AM The status of this report is Signed. Draft = Not yet reviewed or approved by Radiologist. Signed = Reviewed and approved by Radiologist. <AttendingPhy></AttendingPhy> <FamilyPhy>Dharmesh Ennis M.D.</FamilyPhy > <PrimaryPhy>Dharmesh Ennis M.D.</PrimaryPhy> <UnitNumber>[id number]</ UnitNumber> <VisitNumber>[id number]</VisitNumber> <PatientName>KERI CERVANTES< /PatientName> <DateOfBirth>1975</DateOfBirth> <Location>[facility]</Location> < ServiceDate>03/03/17</ServiceDate> <MNE>ESINDI</MNE> <OrderingPhy>Avni Patiño D.O.</OrderingPhy> <OrderingPhyMNE>f rep ord dr story</OrderingPhyMNE> <DictatingPhyMNE>f rep dict dr story</DictatingPhyMNE> <CCListMNE>f rep ct jez</ CCListMNE> <AdmittingPhyMNE>f pt admit dr story</AdmittingPhyMNE> <AttendingPhyMNE >f pt attend dr story</AttendingPhyMNE> <ConsultingPhyMNE>f pt consult dr story</ConsultingPhyMNE> <FamilyPhyMNE>f pt fam dr story</FamilyPhyMNE> <OtherPhyMNE>f pt other dr story</OtherPhyMNE> < PrimaryPhyMNE>f pt prim care dr story</PrimaryPhyMNE> <ReferringPhyMNE>f pt referring dr story</ReferringPhyMNE> EKG EKG shows normal sinus rhythm at 70 bpm, there are no acute ST-T changes. Impression Assessment and Plan Right proximal ureteral 9 mm stone with mild right hydronephrosis--the patient be admitted to the medical surgical floor. Will place on Zosyn 3.375 mg IV every 6 hours. He'll be nothing by mouth after midnight, and on normal saline with KCl 20 mEq oh mils per hour. We'll follow serial laboratories. Zofran 4 mg IV every 6 hours when necessary nausea, and Dilaudid .5 - 1 mg IV every 2 hours when necessary. Diabetes mellitus--hold metformin. Place on Accu-Cheks before meals and at bedtime with NovoLog coverage per scale. Hypertension--hold losartan potassium 25 mg by mouth daily. Hypothyroidism continue levothyroxine sodium 175 g by mouth daily. Hyperlipidemia--continue atorvastatin 80 mg by mouth at bedtime. Impression--continue bupropion SR 150 mg by mouth every morning. Restless legs--continue pramipexole 0.25 mg by mouth at bedtime. Level of Care Med/Surg Advanced Directives Existing Advance Directive: No Existing Living Will: No Existing Power of Fiscal Clerk: No Resuscitation Status FULL RESUSCITATION VTE Prophylaxis VTE Risk Assessment Done? Y/N: Yes Risk Level: Moderate Given or contraindicated: SCD's Social Service Consult None Apply
[2017-03-03] MEDS: CEFTRIAXONE SOD INJ 1 GM in DEXTROSE 5% ADD-VANTAGE 50ML 50 ML IV SCH (17:48)
[2017-03-03] MEDS: NSS + 20MEQ KCL 1000ML 1,000 ML IV SCH (17:48)
[2017-03-03] MEDS: HYDROmorphone INJ 0.5 MG/0.5 ML SYR IV PRN ×2 (19:27→23:35)
[2017-03-03] MEDS ORDERED: PRAMIPEXOLE DIHYDROCHLORIDE 0.25MG TAB PO SCH (21:00)
[2017-03-03] MEDS ORDERED: ATORVASTATIN 40 MG TAB PO SCH (21:00)
[2017-03-03 23:06] VITALS: BP 111/70; PULSE 72; TEMP 36.8; O2SAT 96
[2017-03-04] MEDS: NSS + 20MEQ KCL 1000ML 1,000 ML IV SCH ×2 (02:32→12:04)
[2017-03-04] MEDS: LEVOTHYROXINE 175 MCG TAB PO SCH ×2 (06:00→06:17)
[2017-03-04] MEDS ORDERED: LACTATED RINGER'S 1000ML 1,000 ML IV SCH (06:00)
[2017-03-04 06:57] LABS: BASO % 0.3 %; BASO ABS # 0.02 K/uL (0-0.2); COMPLETE YES; EOS % 3.2 %; HEMATOCRIT 39.2 % (42-52); LYMPH % 24.8 %; LYMPH ABS # 1.69 K/uL (1.2-3.4); MEAN CELL VOLUME 85.6 fL (80-100); MEAN CORPUSCULAR HEMOGLOBIN 27.5 pg (25-34); MEAN CORPUSCULAR HGB CONC 32.1 g/dl (32-36); MEAN PLATELET VOLUME 9.7 fL (7.4-10.4); MONO % 6.3 %; NEUT % 65.4 %; PLATELET COUNT 179 K/uL (130-400); RED BLOOD COUNT 4.58 M/uL (4.7-6.1); WHITE BLOOD COUNT 6.81 K/uL (4.8-10.8)
[2017-03-04 06:59] VITALS: BP 123/80; PULSE 78; TEMP 36.5; O2SAT 94
[2017-03-04 07:11] LABS: PARTIAL THROMBOPLASTIN RATIO 1.1; PROTHROMBIN TIME (PATIENT) 10.7 SECONDS (9.0-12.0)
[2017-03-04 07:33] LABS: BUN/CREATININE RATIO 9.5 (10-20); CALCIUM 8.4 mg/dl (8.5-10.1); CREATININE 0.99 mg/dl (0.60-1.40); MAGNESIUM 2.1 mg/dl (1.8-2.4); POTASSIUM 3.9 mmol/L (3.5-5.1)
[2017-03-04] MEDS ORDERED: CIPROFLOXACIN 400MG / 200ML D5W IV ONE (08:00)
[2017-03-04] MEDS: CIPROFLOXACIN / D5W 400 MG IV SCH ×3 (08:00→15:23)
--- NOTE | 2017-03-04 08:08 | Urology Consultation ---
History General Date of Service: Mar 04, 2017. Chief Complaint: right flank pain Primary Care Physician: Dharmesh Ennis M.D. Pt seen a urologist before?: Yes (Dr. Hale) If yes, why?: vasectomy History of Present Illness 41 yo male presents to [facility] yesterday with c/o right flank pain that started yesterday morning. CT scan showing a 9mm proximal right ureteral stone and bilateral nephrolithiasis. The pt denies a previous hx of stones. He denies any f/c, dysuria, or hematuria at home. He does c/o nausea this morning. Pain is currently controlled. White count and Cr are normal this morning. Imaging Imaging: CT Laboratory Last 24 Hours Test 03/03/17 09:45 03/03/17 09:49 03/04/17 05:42 White Blood Count 7.93 K/uL 6.81 K/uL Red Blood Count 5.22 M/uL 4.58 M/uL Hemoglobin 14.4 g/dL 12.6 g/dL Hematocrit 43.0 % 39.2 % Mean Corpuscular Volume 82.4 fL 85.6 fL Mean Corpuscular Hemoglobin 27.6 pg 27.5 pg Mean Corpuscular Hemoglobin Concent 33.5 g/dl 32.1 g/dl Platelet Count 224 K/uL 179 K/uL Mean Platelet Volume 9.3 fL 9.7 fL Neutrophils (%) (Auto) 76.8 % 65.4 % Lymphocytes (%) (Auto) 15.1 % 24.8 % Monocytes (%) (Auto) 4.5 % 6.3 % Eosinophils (%) (Auto) 3.0 % 3.2 % Basophils (%) (Auto) 0.3 % 0.3 % Neutrophils # (Auto) 6.09 K/uL 4.45 K/uL Lymphocytes # (Auto) 1.20 K/uL 1.69 K/uL Monocytes # (Auto) 0.36 K/uL 0.43 K/uL Eosinophils # (Auto) 0.24 K/uL 0.22 K/uL Basophils # (Auto) 0.02 K/uL 0.02 K/uL RDW Standard Deviation 41.5 fL 44.2 fL RDW Coefficient of Variation 13.7 % 14.3 % Immature Granulocyte % (Auto) 0.3 % 0.0 % Immature Granulocyte # (Auto) 0.02 K/uL 0.00 K/uL Sodium Level 138 mmol/L 143 mmol/L Potassium Level 4.2 mmol/L 3.9 mmol/L Chloride Level 107 mmol/L 109 mmol/L Carbon Dioxide Level 24 mmol/L 27 mmol/L Anion Gap 7.0 mmol/L 7.0 mmol/L Blood Urea Nitrogen 11 mg/dl 9 mg/dl Creatinine 1.10 mg/dl 0.99 mg/dl Est Creatinine Clear Calc Drug Dose 139.0 ml/min 154.4 ml/min Estimated GFR () 96.1 109.2 Estimated GFR (Non- 82.9 94.2 BUN/Creatinine Ratio 9.9 9.5 Random Glucose 112 mg/dl 83 mg/dl Calcium Level 9.0 mg/dl 8.4 mg/dl Total Bilirubin 0.6 mg/dl 1.0 mg/dl Aspartate Amino Transf (AST/SGOT) 14 U/L 13 U/L Alanine Aminotransferase (ALT/SGPT) 26 U/L 24 U/L Alkaline Phosphatase 86 U/L 81 U/L Total Protein 7.6 gm/dl 6.4 gm/dl Albumin 3.8 gm/dl 3.0 gm/dl Globulin 3.8 gm/dl Albumin/Globulin Ratio 1.0 Lipase 131 U/L Hepatitis B Surface Antigen NEG Hepatitis C Antibody NEG Bedside Glucose 106 mg/dl Prothrombin Time 10.7 SECONDS Prothromb Time International Ratio 1.0 Activated Partial Thromboplast Time 29.1 SECONDS Partial Thromboplastin Ratio 1.1 Magnesium Level 2.1 mg/dl Direct Bilirubin 0.2 mg/dl Problem List Medical Problems: (1) Kidney stone Status: Acute Past History diabetes, hypertension Past Surgical History: orthopedic surgery (knee arthroscopy) Family History Cancer Diabetes mellitus Gallbladder disease Social History Hx Tobacco Use In Past Year?: No Smoking: non-smoker Marital status: Housing status: lives with family Occupation status: disabled Immunizations History of Influenza Vaccine: Unknown History of Tetanus Vaccine?: Unknown History of Pneumococcal: Unknown History of Hepatitis B Vaccine: Unknown History of MDRO No Allergies Coded Allergies: NO KNOWN DRUG ALLERGIES (Verified Allergy, Unknown, ., 03/03/17) Medications Home Medications: Home Meds and Scripts Medications Dose Route/Sig Max Daily Dose Days Date Category Roxicodone Ir (Oxycodone HCl) 5 Mg Tab 1-2 Tab PO Q4H PRN 03/03/17 Rx Flomax (Tamsulosin Hcl) 0.4 Mg Cap 0.4 Mg PO DAILY 03/03/17 Rx Cozaar (Losartan Potassium) 25 Mg Tab 25 Mg PO DAILY 03/03/17 Reported Vitamin D 53459 Unit (Ergocalciferol) 50,000 Unit Cap 50,000 Unit PO WK 01/08/17 Reported Pramipexole Dihydrochlori (Pramipexole Dihydrochloride) 0.25 Mg Tab 1 Tab PO HS 01/08/17 Reported Glucophage (Metformin Hcl) 500 Mg Tab 2 Tab PO BID 01/08/17 Reported Levothyroxine Sodium 175 Mcg Tab 1 Tab PO QAM 90 01/08/17 Reported Wellbutrin Sr (Bupropion Hcl) 150 Mg Tab 150 Mg PO QAM 01/08/17 Reported Lipitor (Atorvastatin Calcium) 80 Mg Tab 80 Mg PO HS 01/08/17 Reported Inpatient Medications: Current Inpatient Medications Medications (Trade) Dose Ordered Sig/Miguel A Route Start Time Stop Time Status Last Admin Dose Admin Acetaminophen (Tylenol Tab) 650 mg Q4H PRN PO 03/03/17 15:15 04/02/17 15:14 Zolpidem Tartrate (Ambien Tab) 5 mg HSZ PRN PO 03/03/17 15:15 04/02/17 15:14 Ondansetron HCl (Zofran Inj) 4 mg Q6H PRN IV 03/03/17 15:15 04/02/17 15:14 Ceftriaxone Sodium 1 gm/ Dextrose 50 ml @ 100 mls/hr Q24H IV 03/03/17 17:00 03/13/17 15:14 03/03/17 17:48 100 MLS/HR Potassium Chloride/Sodium Chloride 1,000 ml @ 100 mls/hr Q10H IV 03/03/17 16:45 04/02/17 15:06 03/04/17 02:32 100 MLS/HR Hydromorphone HCl (Dilaudid Inj) 1 mg Q2H PRN IV 03/03/17 15:15 03/17/17 15:14 Hydromorphone HCl (Dilaudid Inj) 0.5 mg Q2H PRN IV 03/03/17 15:15 03/17/17 15:14 03/03/17 23:35 0.5 MG Atorvastatin Calcium (Lipitor Tab) 80 mg HS PO 03/03/17 21:00 04/02/17 20:59 03/03/17 21:55 80 MG Bupropion HCl (Wellbutrin-Sr Tab) 150 mg QAM PO 03/04/17 09:00 04/03/17 08:59 Levothyroxine Sodium (Synthroid Tab) 175 mcg DAILYBB PO 03/04/17 06:00 04/03/17 05:59 Pramipexole Dihydrochloride (miraPEX TAB) 0.25 mg HS PO 03/03/17 21:00 04/02/17 20:59 03/03/17 21:55 0.25 MG Tamsulosin HCl (Flomax Cap) 0.4 mg DAILY PO 03/04/17 09:00 04/03/17 08:59 Review of Systems Review of Systems Constitutional: No fever, No chills Eyes: No double vision Neurological: No dizzy Endocrine: No excessive thirst Gastrointestinal: + nausea, No abdominal pain, No vomiting Cardiovascular: No chest pain Respiratory: No shortness of breath Skin: No rash Musculoskeletal: No back pain Male : No painful urination, No blood in urine Physical Exam Vital Signs: Vital Signs Past 12 Hours Date Time Temp Pulse Resp B/P (MAP) Pulse Ox O2 Delivery O2 Flow Rate FiO2 03/04/17 06:59 36.5 78 16 123/80 (94) 94 Room Air 03/03/17 23:38 Room Air 03/03/17 23:06 36.8 72 16 111/70 (84) 96 Room Air Physical Exam: General Appearance: no apparent distress Eyes: bilateral eyes normal inspection ENT: hearing grossly normal Neck: no JVD Respiratory/Chest: no respiratory distress, no accessory muscle use Cardiovascular: no JVD Extremities: normal inspection Neurologic/Psychiatric: alert, normal mood/affect, oriented x 3 Skin: normal color Assessment & Plan Assessment & Plan Treatment Planned: cystoscopy w/ stent A/P: 9mm proximal right ureteral stone AFVSS. Tx options discussed with the pt this morning have included a trial of passage ( unlikely given size of the stone) vs cysto with right ureteral stent placement today. The pt prefers to proceed with a cysto with right ureteral stent placement today given prior severe pain. Risks and benefits of the procedure discussed with the pt. All questions answered. Pt agrees to the procedure at this time. Consent obtained. Will check a UC&S. Will also check a KUB to check stone visibility. If stone visible, will plan for ESWL this Saturday for definitive stone management. The pt should AVOID any NSAIDS, fish oil, or other blood thinners prior to procedure on Saturday. Continue Flomax. Pt OK for d/c home from [facility] after stent placement if doing well. Thanks for the consult. Will continue to follow along with primary service at this time.
--- NOTE | 2017-03-04 08:35 | DIAGNOSTIC IMAGING REPORT ---
KUB CLINICAL HISTORY: 41 years-old Male presenting with right ureteral stone . TECHNIQUE: Single supine view of the abdomen was obtained. COMPARISON: CT from 03/03/2017. FINDINGS: Previously noted 9 mm calculus in the proximal right ureter, unchanged in position. Previously noted 6 mm calculus at the lower pole of the right kidney, unchanged in position. Previously noted 4 mm left renal calculus also unchanged in position. Few phleboliths noted in the pelvis. Normal bowel gas pattern. No gross evidence of pneumoperitoneum. Lung bases clear. Degenerative changes of the pubic symphysis. IMPRESSION: 1. No change in position of the bilateral renal calculi including the proximal right ureteral calculus. Electronically signed by: Amador Chong 03/04/2017 8:34 AM Dictated Date/Time: 03/04/2017 8:30 AM
--- NOTE | 2017-03-04 08:39 | DIAGNOSTIC IMAGING REPORT ---
CHEST 2 VIEWS ROUTINE HISTORY:41 yearsMalep[age]-op preoperative exam. The patient is asymptomatic. COMPARISON: Abdominal radiograph of same day. TECHNIQUE: Frontal and lateral views of the chest. FINDINGS: Cardiomediastinal and hilar silhouettes are within normal limits. No pneumothorax, pleural effusion, focal airspace consolidation or overt pulmonary edema. Bones are grossly intact. IMPRESSION: No acute cardiopulmonary process. The above report was generated using voice recognition software. It may contain grammatical, syntax or spelling errors. Electronically signed by: Richard Garcia 03/04/2017 8:38 AM Dictated Date/Time: 03/04/2017 8:37 AM
[2017-03-04] MEDS ORDERED: BuPROPion SR 150 MG TABCR PO SCH (09:00)
[2017-03-04] MEDS ORDERED: TAMSULOSIN HCL 0.4 MG CAP PO SCH (09:00)
[2017-03-04] MEDS ORDERED: MIDAZOLAM HCL 1 MG/ML 2ML VIAL ONE (14:35)
[2017-03-04] MEDS ORDERED: FENTANYL CITRATE INJ 50 MCG/1 ML 2 ML VIAL ONE (14:36)
[2017-03-04] MEDS ORDERED: NURSING VERBAL MED ORDER ONE (15:15)
[2017-03-04] MEDS ORDERED: LIDOCAINE HCL 2% 2 ML VIAL (20MG/ML) ONE (15:25)
[2017-03-04] MEDS ORDERED: PROPOFOL IV EMULSION 10 MG/ML 20 ML VIAL IV ONE (15:25)
[2017-03-04] MEDS ORDERED: ONDANSETRON INJ 2 MG/ML 2 ML VIAL ONE (15:25)
[2017-03-04] MEDS ORDERED: KETOROLAC TROMETHAMINE 30 MG/ML VIAL ONE (15:25)
[2017-03-04] MEDS ORDERED: CONRAY 30% 150ML BOTTLE ONE (15:26)
[2017-03-04] MEDS ORDERED: ATROPINE SULFATE 0.1 MG/ML 5ML SYR IV PRN (15:45)
[2017-03-04] MEDS ORDERED: NALOXONE HCL 0.4 MG/1 ML VIAL/CARP IV PRN (15:45)
[2017-03-04] MEDS ORDERED: PHENYLEPHRINE 100MCG/ML 5ML SYR IV PRN (15:45)
[2017-03-04] MEDS ORDERED: FLUMAZENIL 0.1 MG/1 ML 10 ML VIAL IV PRN (15:45)
[2017-03-04] MEDS ORDERED: EpHEDrine SULFATE INJ 50 MG/ML AMP IV PRN (15:45)
[2017-03-04] MEDS ORDERED: ONDANSETRON INJ 2 MG/ML 2 ML VIAL IV PRN (15:45)
[2017-03-04] MEDS ORDERED: HYDROmorphone INJ 2 MG/ML SYR/VIAL IV PRN (15:45)
[2017-03-04] MEDS ORDERED: MEPERIDINE HCL 25 MG/ML CARP IV PRN (15:45)
[2017-03-04] MEDS ORDERED: LABETALOL HCL IV 5 MG/ML 20ML IV PRN (15:45)
[2017-03-04] MEDS ORDERED: FENTANYL CITRATE INJ 50 MCG/1 ML 2 ML VIAL IV PRN (15:45)
--- NOTE | 2017-03-04 15:56 | [facility] Operative Report ---
Operative Report Operative Date Mar 04, 2017. Pre-Operative Diagnosis Right ureteral calculus Post-Operative Diagnosis Right ureteral calculus Procedure(s) Performed Cystoscopy; right retrograde pyelogram; right ureteral stent placement (6 [id number]) Surgeon Laisha Nicholson Lead Mason Tender Surgeon(s) none Estimated Blood Loss 0 mL Findings Proximal right ureteral calculus visible on fluoroscopy Specimens None Drains 6 Yemeni by 2232 centimeter stent Anesthesia sedation Complication(s) None Disposition Recovery Room / PACU (stable) Indications Right hydronephrosis and pain with right ureteral stone Description of Procedure Bassam Smart was identified in the preoperative holding area appropriate informed consents were reviewed and completed and the patient was transported to the operating suite. Upon arrival he received appropriate preoperative antibiotics in the form of ciprofloxacin. Adequate sedation was achieved and he was placed in dorsal lithotomy position where he was sterilely prepped and draped in standard fashion. Beginning the case bypass in 22 Yemeni cystoscope with 30 lens. There is no evidence of stricture disease nor any obstruction from the prostate. Full inspection of the bladder was carried out with 30 and 70 lenses. There were no mucosal abnormalities. Ureteral orifices were in orthotopic position. Following my full inspection entered my attention to the right ureteral orifice. I intubated the right ureteral orifice with a sensor wire and advanced it to the kidney under fluoroscopic guidance. There did appear to be an opacity in the proximal ureter consistent with the stones seen previously. Over the wire advanced a 6 Yemeni open-ended catheter. I withdrew the wire and noted a hydronephrotic drip. I proceeded to add a small amount of contrast to confirm a renal position on my wire and catheter. I replaced the wire and ultimately placed a 6 Yemeni by 22-32 centimeter double-J ureteral stent over the wire. I observed a good curl in the kidney as well as the bladder. The bladder was decompressed and all cystoscopic equipment removed. The case was concluded and the patient was taken to the PACU in stable condition. I attest to the content of the Intraoperative Record and any orders documented therein. Any exceptions are noted below.
--- NOTE | 2017-03-04 16:11 | Anesthesiology Progress Note ---
Anesthesia Post Op Note Date & Time Mar 04, 2017 at 16:11 Vital Signs Pain Intensity: 3 Vital Signs Past 12 Hours Date Time Temp Pulse Resp B/P (MAP) Pulse Ox O2 Delivery O2 Flow Rate FiO2 03/04/17 16:00 82 15 135/85 99 Room Air 03/04/17 15:52 36.3 89 19 125/79 96 Room Air 03/04/17 14:35 36.5 75 18 154/78 (103) 96 Room Air 03/04/17 08:00 Room Air 03/04/17 06:59 36.5 78 16 123/80 (94) 94 Room Air Notes Mental Status: alert / awake / arousable, participated in evaluation Pt Amnestic to Procedure: Yes Nausea / Vomiting: adequately controlled Pain: adequately controlled Airway Patency, RR, SpO2: stable & adequate BP & HR: stable & adequate Hydration State: stable & adequate Anesthetic Complications: no major complications apparent
--- NOTE | 2017-03-04 16:25 | DIAGNOSTIC IMAGING REPORT ---
RETROGRADE INCLUDES KUB HISTORY:41 yearsMaleRT CYSTO/LASER/STENT COMPARISON: KUB radiograph 03/04/2017, CT 03/03/2017. TECHNIQUE: 3 spot fluoroscopic images of the right upper abdomen were obtained utilizing 7 seconds of fluoroscopy time. FINDINGS: Interpretation of the images was conducted after the procedure was conducted. First image demonstrates a guidewire looping within the right upper abdomen. The second image demonstrates injection of contrast into the right renal collecting system with deployment of a ureteral stent. Third image demonstrates residual contrast within the peripheral calyces with placement of a ureteral stent and removal of the guidewire. Small filling defect in the proximal right ureter appears to correlate with the previously described calculus seen on CT study dated 03/03/2017. IMPRESSION: Status post right ureteral stent placement. The above report was generated using voice recognition software. It may contain grammatical, syntax or spelling errors. Electronically signed by: Richard Garcia 03/04/2017 4:24 PM Dictated Date/Time: 03/04/2017 4:20 PM
[2017-03-04 16:40] VITALS: BP 136/84; PULSE 71; TEMP 36.6; O2SAT 95
[2017-03-04 17:10] VITALS: BP 144/87; PULSE 71; TEMP 36.4; O2SAT 97
--- NOTE | 2017-03-04 17:16 | Discharge Instructions ---
Discharge Instructions Date of Service Mar 04, 2017. Admission Reason for Admission: Right Hydronephrosis, Right Ureteral Calculus Discharge Discharge Diagnosis / Problem: Ureteral stone Discharge Goals Goal(s): Decrease discomfort, Improve function, Increase independence, Improve disease control, Diagnostic testing, Therapeutic intervention Activity Recommendations Activity Limitations: resume your previous activity Lifting Limitations: none Shower/Bathe: no limitations . Instructions / Follow-Up Instructions / Follow-Up Patient to be discharged home Please continue taking flomax daily Will need to follow up with urology on saturday on 03/08 for lithotripsy If worsening pain or fevers please report to ER Current Hospital Diet Patient's current hospital diet: Discharge Diet Recommended Diet: Regular Diet Procedures Procedures Performed: Cystoscopy; right retrograde pyelogram; right ureteral stent placement (6 [id number]) Pending Studies Studies pending at discharge: no Laboratory Results Hemoglobin A1c Test 02/15/17 09:12 Range/Units Estimated Average Glucose 128 mg/dl Hemoglobin A1c 6.1 H 4.5-5.6 % Lipid Panel Test 02/15/17 09:12 Range/Units Triglycerides Level 93 0-150 mg/dl Cholesterol Level 119 0-200 mg/dl HDL Cholesterol 38 mg/dl Cholesterol/HDL Ratio 3.1 LDL Cholesterol, Calculated 62 mg/dl Work Instructions Return To Work: 3 days Medical Emergencies . Who to Call and When: Medical Emergencies: If at any time you feel your situation is an emergency, please call 911 immediately. . Non-Emergent Contact Non-Emergency issues call your: Primary Care Provider Call Non-Emergent contact if: you have a fever, your pain is worsening . . "Provider Documentation" section prepared by Kaden Nunez. . VTE Core Measure Inpt VTE Proph given/why not?: SCD's
--- NOTE | 2017-03-04 17:21 | Discharge Summary ---
Discharge Summary Date of Service Mar 04, 2017. Discharge Summary Admission Date: Mar 03, 2017 at 15:03 Discharge Date: Mar 04, 2017 Discharge Disposition: Home Principal Diagnosis: Right ureteral stone Immunizations: Have You Had Influenza Vaccine: Unknown History of Tetanus Vaccine?: Unknown History of Pneumococcal: Unknown History of Hepatitis B Vaccine: Unknown Consultations: Urology Medication Reconciliation Continued Medications: Atorvastatin (Lipitor) 80 Mg Tab 80 MG PO HS, TAB Bupropion Hcl (Wellbutrin Sr) 150 Mg Tab 150 MG PO QAM, TAB Ergocalciferol (Vitamin D 88958 Unit) 50,000 Unit Cap 59251 UNIT PO WK, CAP Levothyroxine Sodium (Levothyroxine Sodium) 175 Mcg Tab 1 TAB PO QAM for 90 Days, #90 TAB 3 Refills Losartan Potassium (Cozaar) 25 Mg Tab 25 MG PO DAILY, TAB Metformin Hcl (Glucophage) 500 Mg Tab 2 TAB PO BID, TAB Oxycodone Immediate Rel Tab (Roxicodone Ir) 5 Mg Tab 1-2 TAB PO Q4H PRN for Severe Pain, #25 TAB Pramipexole Dihydrochloride (Pramipexole Dihydrochlori) 0.25 Mg Tab 1 TAB PO HS Tamsulosin Hcl (Flomax) 0.4 Mg Cap 0.4 MG PO DAILY, #14 CAP Discharge Exam Review of Systems: Constitutional: No fever, No chills, No sweats, No weight loss, No weakness Eyes: No worsening of vision, No eye pain, No redness, No discharge Respiratory: No cough, No sputum, No wheezing, No shortness of breath, No dyspnea on exertion, No dyspnea at rest Cardiovascular: No chest pain, No orthopnea, No PND, No edema Abdomen: No pain, No nausea, No vomiting, No diarrhea Musculoskeletal: No joint pain, No muscle pain, No swelling, No calf pain Genitourinary - Male: No hematuria, No dysuria, No urinary frequency, No urinary urgency Neurologic: No memory loss, No paralysis, No weakness, No numbness/tingling Psychiatric: No depression symptoms, No anhedonism, No anxiety, No insomnia Endocrine: No fatigue, No excessive thirst, No excessive urination Physical Exam: General Appearance: WD/WN, no apparent distress Eyes: normal inspection, PERRL, EOMI, sclerae normal ENT: normal ENT inspection, hearing grossly normal, TMs normal, pharynx normal Neck: supple, no adenopathy, thyroid normal, no JVD Respiratory/Chest: chest non-tender, lungs clear, normal breath sounds, no respiratory distress Cardiovascular: regular rate, rhythm, no edema, no gallop, no JVD Abdomen / GI: normal bowel sounds, non tender, soft, no organomegaly Neurologic/Psychiatric: alert, normal mood/affect, normal reflexes, oriented x 3 Hospital Course Right proximal ureteral 9 mm stone with mild right hydronephrosis--the patient was admitted to the medical surgical floor. Stent placed 03/04 Will need lithotrtipsy, scheduled for 03/08 Cont flomax Pain controlled Diabetes mellitus--cont metformin. Place on Accu-Cheks before meals and at bedtime with NovoLog coverage per scale. Hypertension--cont losartan potassium 25 mg by mouth daily. Hypothyroidism continue levothyroxine sodium 175 g by mouth daily. Hyperlipidemia--continue atorvastatin 80 mg by mouth at bedtime. Impression--continue bupropion SR 150 mg by mouth every morning. Restless legs--continue pramipexole 0.25 mg by mouth at bedtime. Total Time Spent: Greater than 30 minutes This includes examination of the patient, discharge planning, medication reconciliation, and communication with other providers. Discharge Instructions Please refer to the electronic Patient Visit Report (Discharge Instructions) for additional information. Additional Copies To Dharmesh Ennis M.D.
[2017-03-04 17:41] VITALS: BP 129/79; PULSE 63; TEMP 36.4; O2SAT 97
[2017-03-04 18:31] VITALS: BP 129/79; PULSE 63; TEMP 36.4; O2SAT 97
[2017-03-04] MEDS: CEFTRIAXONE SOD INJ 1 GM in DEXTROSE 5% ADD-VANTAGE 50ML 50 ML IV SCH (18:35)
[2017-03-05] MEDS ORDERED: OXYC1TAB3 PO (09:43)
[2017-03-05] MEDS ORDERED: TAMS0.4C38 PO (09:43)
[2017-03-08] MEDS ORDERED: OMEG10007 PO (06:58)
[2017-03-08] MEDS ORDERED: OXYC1TAB3 PO (08:25)
== END 2017-03-04 20:00 | disposition home or self-care (01) | DRG 694 ==
LOC: C.EDB 09:16 → C.MSW 15:03 → ENRESERV 15:22
PROVIDERS: ADMIT Hospitalist; ATTEND Hospitalist
PROC: 0T768DZ Dilation of Right Ureter with Intraluminal Device, Via Natural or Artificial Opening Endoscopic (ICD-10-PCS; principal; 2017-03-04 14:45)
DX: N13.2 Hydronephrosis with renal and ureteral calculous obstruction (principal); E11.9 Type 2 diabetes mellitus without complications; I10 Essential (primary) hypertension; E78.5 Hyperlipidemia, unspecified; E03.9 Hypothyroidism, unspecified; Z79.84 Long term (current) use of oral hypoglycemic drugs; Z79.899 Other long term (current) drug therapy

== ENCOUNTER → 2017-03-08 | Outpatient (CLI) | payer OTHER ==
[~2017-03-08] MED LIST changes: -HYDR25TA4 PO; +LOSA25TA18 PO; +OMEG10007 PO; +OXYC1TAB3 PO; +TAMS0.4C38 PO
[2017-03-08 12:08] LABS: HEMATOCRIT 40.1 % (42-52)
[2017-03-08 12:28] LABS: PROLACTIN 6.36 ng/mL
== END | disposition home or self-care (01) ==
LOC: C.LAB1850 10:39
PROVIDERS: ATTEND Internal Medicine Endocrinology, Diabetes & Metabolism
DX: E29.1 Testicular hypofunction (principal)

== ENCOUNTER → 2017-03-08 | Day surgery (SDC) | payer OTHER ==
[2017-03-05 09:43] VITALS: Ht 190.5 cm; Wt 150.0 kg
--- NOTE | 2017-03-07 15:36 | DIAGNOSTIC IMAGING REPORT ---
KUB CLINICAL HISTORY: Nephrolithiasis. COMPARISON STUDY: CT of the abdomen and pelvis March 03, 2017 and KUB March 04, 2017. FINDINGS: A right ureteral stent is appropriately positioned. Note is made of a 6 mm calculus within the lower pole the right kidney. There is a 3 mm left renal calculus. No ureteral calculus is identified. The right ureteral calculus shown on prior KUB of March 04, 2017 and may be within the right inferior collecting system. Bowel gas pattern is normal. IMPRESSION: 1. Appropriately positioned right ureteral stent. No ureteral calculi identified. The right ureteral calculus shown on prior KUB may be within the right collecting system. 2. Bilateral nephrolithiasis. Electronically signed by: Pierre Blair M.D. 03/07/2017 3:35 PM Dictated Date/Time: 03/07/2017 3:00 PM
[~2017-03-08] VITALS: Ht 190.5 cm; Wt 150.0 kg
[~2017-03-08] MED LIST changes: +ATROPINE SULFATE 0.1 MG/ML 5ML SYR IV PRN; +CIPROFLOXACIN 400MG / D5W IV SCH; +EpHEDrine SULFATE INJ 50 MG/ML AMP IV PRN; +EpHEDrine SULFATE INJ 50 MG/ML AMP ONE; +FENTANYL CITRATE INJ 50 MCG/1 ML 2 ML VIAL IV PRN; +FENTANYL CITRATE INJ 50 MCG/1 ML 2 ML VIAL ONE; +LACTATED RINGER'S 1000ML 1,000 ML IV SCH; +LIDOCAINE HCL 2% 2 ML VIAL (20MG/ML) ONE; +MIDAZOLAM HCL 1 MG/ML 2ML VIAL ONE; +ONDANSETRON INJ 2 MG/ML 2 ML VIAL IV PRN; +ONDANSETRON INJ 2 MG/ML 2 ML VIAL ONE; +OXYCODONE/ACETAMINOPHEN 5-325 TAB PO PRN; +PROMETHAZINE HCL INJ 6.25 MG in SODIUM CHLORIDE 0.9% 50ML 50 ML IV PRN; +PROPOFOL IV EMULSION 10 MG/ML 20 ML VIAL IV ONE; +SODIUM CHLORIDE 0.9% INJ 10 ML VIAL ONE
--- NOTE | 2017-03-08 07:05 | History & Physical Bridge Note ---
H&P Re-Evaluation Bridge Note: I have examined the patient, reviewed the History & Physical and in the interval since the performance of the History & Physical I have noted the following changes of clinical significance: No changes noted
--- NOTE | 2017-03-08 08:21 | Discharge Instructions ---
Discharge Instructions Date of Service Mar 08, 2017. Admission Reason for Admission: Stones;Nephrolithiasis N20.0 Discharge Discharge Diagnosis / Problem: R renal stone with indwelling stent s/p ESWL Discharge Goals Goal(s): Decrease discomfort, Improve function, Improve disease control, Therapeutic intervention Activity Recommendations Activity Limitations: as noted below Lifting Limitations: no more than 25 pounds, gradually increase as tolerated ( x 3 days) Exercise/Sports Limitations: rest today, gradually increase as tolerated (x 3 days) May Resume Sexual Activity: when tolerated Shower/Bathe: no limitations Driving or Machine Use: resume 1 day after discharge . Instructions / Follow-Up Instructions / Follow-Up As scheduled in office with KUB Xray prior to appointment Strain urine as instructed Discharge Diet Recommended Diet: Regular Diet (good fluid intake) Procedures Procedures Performed: R renal ESWL Pending Studies Studies pending at discharge: no Laboratory Results Hemoglobin A1c Test 02/15/17 09:12 Range/Units Estimated Average Glucose 128 mg/dl Hemoglobin A1c 6.1 H 4.5-5.6 % Lipid Panel Test 02/15/17 09:12 Range/Units Triglycerides Level 93 0-150 mg/dl Cholesterol Level 119 0-200 mg/dl HDL Cholesterol 38 mg/dl Cholesterol/HDL Ratio 3.1 LDL Cholesterol, Calculated 62 mg/dl Medical Emergencies . Who to Call and When: Medical Emergencies: If at any time you feel your situation is an emergency, please call 911 immediately. . Non-Emergent Contact Non-Emergency issues call your: Urologist Call Non-Emergent contact if: you have a fever, temperature is above 101, your pain is not controlled, your pain is worsening, your pain is unusual for you, your pain is concerning you, you have any medication questions . . "Provider Documentation" section prepared by Camilo Mclaughlin. . VTE Core Measure Inpt VTE Proph given/why not?: SCD's [place] Drug Monitoring Program Search Results: patient reviewed within database, see additional documentation (received #25 oxycodone 5 mg on Mar 03 2017 - requests more pain meds for postop pain, Rx provided)
--- NOTE | 2017-03-08 08:24 | [facility] Operative Report ---
Operative Report Operative Date Mar 08, 2017. Pre-Operative Diagnosis R renal stone with indwelling stent Post-Operative Diagnosis Same Procedure(s) Performed R renal ESWL Surgeon Arnoldo Stahl Hvac Project Engineer Surgeon(s) NA Estimated Blood Loss NA Findings Excellent stone fragmentation on fluoro Specimens NA Drains Indwelling stent Anesthesia GALMA Complication(s) None Disposition Recovery Room / PACU Indications R renal stones Description of Procedure The patient was brought to the litho suite. He was correctly identified and the stone was visualized on his most recent x-rays. After the correct time out was performed the patient was positioned over the therapy head. An adequate level of anesthesia was administered. The extracorporeal shockwave lithotripsy treatment was then commenced. Please see the [place] sheet for complete treatment summary. After completion of the procedure the patient was taken to the recovery room in stable condition. I attest to the content of the Intraoperative Record and any orders documented therein. Any exceptions are noted below. I attest to the content of the Intraoperative Record and any orders documented therein. Any exceptions are noted below.
--- NOTE | 2017-03-08 09:05 | [facility] Post Operative Brief Note ---
Immediate Operative Summary Operative Date Mar 08, 2017. Pre-Operative Diagnosis Right Renal Stone Post-Operative Diagnosis Same Procedure(s) Performed R renal ESWL Surgeon Dr. Victoria Mclaughlin Explosive Ordnance Technician Surgeon(s) None Estimated Blood Loss 0 mL Findings Excellent stone fragmentation on fluoro Specimens None Drains Indwelling stent Anesthesia GALMA Complication(s) None Disposition Recovery Room / PACU
[2017-03-08 09:50] VITALS: TEMP 36.4
[2017-03-08 10:12] VITALS: BP 121/79; PULSE 71; O2SAT 100
--- NOTE | 2017-03-08 10:25 | Anesthesiology Progress Note ---
Anesthesia Post Op Note Date & Time Mar 08, 2017 at 10:25 Vital Signs Pain Intensity: 0 Vital Signs Past 12 Hours Date Time Temp Pulse Resp B/P (MAP) Pulse Ox O2 Delivery O2 Flow Rate FiO2 03/08/17 10:12 71 22 121/79 (93) 100 Room Air 03/08/17 09:50 36.4 69 20 107/68 (81) 98 Room Air 03/08/17 09:42 66 20 03/08/17 09:42 65 20 94 03/08/17 09:41 124/82 03/08/17 09:38 36.4 95 Room Air 03/08/17 09:37 68 19 95 03/08/17 09:37 70 19 03/08/17 09:36 117/72 03/08/17 09:32 76 14 03/08/17 09:32 75 14 94 03/08/17 09:31 133/87 03/08/17 09:27 71 19 99 03/08/17 09:27 69 19 03/08/17 09:26 110/62 03/08/17 09:25 61 20 03/08/17 09:25 59 20 98 03/08/17 09:25 59 20 98 03/08/17 09:25 61 20 03/08/17 09:21 117/73 03/08/17 09:21 117/73 03/08/17 09:20 65 24 03/08/17 09:20 65 24 03/08/17 09:20 68 24 98 03/08/17 09:20 68 24 98 03/08/17 09:16 118/69 03/08/17 09:16 118/69 03/08/17 09:15 67 21 99 03/08/17 09:15 67 21 99 03/08/17 09:15 67 21 03/08/17 09:15 67 21 03/08/17 09:15 36.4 79 16 124/82 99 Mask 6 03/08/17 06:58 36.6 80 18 134/90 (105) 94 Room Air Notes Mental Status: alert / awake / arousable, participated in evaluation Pt Amnestic to Procedure: Yes Nausea / Vomiting: adequately controlled Pain: adequately controlled Airway Patency, RR, SpO2: stable & adequate BP & HR: stable & adequate Hydration State: stable & adequate Anesthetic Complications: no major complications apparent
== END | disposition home or self-care (01) ==
LOC: X.SURG 06:29
PROVIDERS: ATTEND Urology
DX: N20.0 Calculus of kidney (principal); E11.9 Type 2 diabetes mellitus without complications; N52.9 Male erectile dysfunction, unspecified; K76.0 Fatty (change of) liver, not elsewhere classified; E16.0 Drug-induced hypoglycemia without coma; E78.5 Hyperlipidemia, unspecified; I10 Essential (primary) hypertension; E03.9 Hypothyroidism, unspecified; E29.0 Testicular hyperfunction; F39 Unspecified mood [affective] disorder; G47.33 Obstructive sleep apnea (adult) (pediatric); G25.81 Restless legs syndrome; E55.9 Vitamin D deficiency, unspecified; E66.01 Morbid (severe) obesity due to excess calories; Z68.41 Body mass index [BMI] 40.0-44.9, adult; Z87.891 Personal history of nicotine dependence; Z79.84 Long term (current) use of oral hypoglycemic drugs; Z79.899 Other long term (current) drug therapy

== ENCOUNTER → 2017-03-19 | Outpatient (CLI) | payer OTHER ==
[~2017-03-19] MED LIST changes: -ATROPINE SULFATE 0.1 MG/ML 5ML SYR IV PRN; -CIPROFLOXACIN 400MG / D5W IV SCH; -EpHEDrine SULFATE INJ 50 MG/ML AMP IV PRN; -EpHEDrine SULFATE INJ 50 MG/ML AMP ONE; -FENTANYL CITRATE INJ 50 MCG/1 ML 2 ML VIAL IV PRN; -FENTANYL CITRATE INJ 50 MCG/1 ML 2 ML VIAL ONE; -LACTATED RINGER'S 1000ML 1,000 ML IV SCH; -LIDOCAINE HCL 2% 2 ML VIAL (20MG/ML) ONE; -MIDAZOLAM HCL 1 MG/ML 2ML VIAL ONE; -ONDANSETRON INJ 2 MG/ML 2 ML VIAL IV PRN; -ONDANSETRON INJ 2 MG/ML 2 ML VIAL ONE; -OXYCODONE/ACETAMINOPHEN 5-325 TAB PO PRN; -PROMETHAZINE HCL INJ 6.25 MG in SODIUM CHLORIDE 0.9% 50ML 50 ML IV PRN; -PROPOFOL IV EMULSION 10 MG/ML 20 ML VIAL IV ONE; -SODIUM CHLORIDE 0.9% INJ 10 ML VIAL ONE
--- NOTE | 2017-03-19 13:12 | DIAGNOSTIC IMAGING REPORT ---
KUB CLINICAL HISTORY: NEPHROLITHIASIS nephrocalcinosis COMPARISON STUDY: 03/07/2017 FINDINGS: right ureteral stent unchanged in position. Interval fragmentation of the lower right renal calcification . Several smaller fragments are identified measuring up to 2 mm. No definite ureteral calcifications. Unchanging punctate left mid renal calcification IMPRESSION: Potential interval fragmentation calcification lower aspect right kidney. Calcifications otherwise are unchanged. Right ureteral stent in good position The above report was generated using voice recognition software. It may contain grammatical, syntax or spelling errors. Electronically signed by: Bassam Estes M.D. 03/19/2017 1:11 PM Dictated Date/Time: 03/19/2017 1:07 PM
== END | disposition home or self-care (01) ==
LOC: C.RAD 12:43
PROVIDERS: ATTEND Nurse Practitioner Adult Health
DX: N20.0 Calculus of kidney (principal)

== ENCOUNTER → 2017-10-16 | Outpatient (CLI) | payer OTHER ==
[~2017-10-16] MED LIST changes: -PRAM0.256 PO; +PRAM0.259 PO
== END | disposition home or self-care (01) ==
LOC: C.LABBFT 09:49
PROVIDERS: ATTEND Internal Medicine
DX: E55.9 Vitamin D deficiency, unspecified (principal); E03.9 Hypothyroidism, unspecified

== ENCOUNTER → 2017-10-17 | Outpatient (CLI) | payer OTHER ==
[2017-10-17 12:42] LABS: BASO % 0.3 %; BASO ABS # 0.03 K/uL (0-0.2); EOS % 4.7 %; EOS ABS # 0.45 K/uL (0-0.5); HEMATOCRIT 39.9 % (42-52); HEMOGLOBIN 13.6 g/dL (14.0-18.0); IG# 0.05 K/uL (0.00-0.02); LYMPH % 14.5 %; LYMPH ABS # 1.37 K/uL (1.2-3.4); MEAN CELL VOLUME 86.9 fL (80-100); MEAN CORPUSCULAR HEMOGLOBIN 29.6 pg (25-34); MEAN CORPUSCULAR HGB CONC 34.1 g/dl (32-36); MEAN PLATELET VOLUME 9.9 fL (7.4-10.4); MONO ABS # 0.66 K/uL (0.11-0.59); NEUT ABS # 6.92 K/uL (1.4-6.5); PLATELET COUNT 175 K/uL (130-400); RED CELL DISTRIBUTION WIDTH CV 14.9 % (11.5-14.5); RED CELL DISTRIBUTION WIDTH SD 46.8 fL (36.4-46.3); WHITE BLOOD COUNT 9.48 K/uL (4.8-10.8)
[2017-10-17 12:51] LABS: BLOOD UREA NITROGEN 12 mg/dl (7-18); CALCIUM 8.8 mg/dl (8.5-10.1); CARBON DIOXIDE 27 mmol/L (21-32); CREATININE 0.99 mg/dl (0.60-1.40); GLUCOSE 105 mg/dl (70-99); POTASSIUM 4.3 mmol/L (3.5-5.1); SODIUM 139 mmol/L (136-145)
[2017-10-17 13:28] LABS: HEMOGLOBIN A1C 5.8 % (4.5-5.6)
== END | disposition home or self-care (01) ==
LOC: C.LABBFT 09:29
PROVIDERS: ATTEND Internal Medicine
DX: E11.9 Type 2 diabetes mellitus without complications (principal); I10 Essential (primary) hypertension; E03.9 Hypothyroidism, unspecified; E55.9 Vitamin D deficiency, unspecified; D64.9 Anemia, unspecified

== ENCOUNTER → 2018-03-21 | Outpatient (CLI) | payer OTHER ==
[~2018-03-21] MED LIST changes: +OXYC-90 PO; -OXYC1TAB3 PO
--- NOTE | 2018-03-21 14:23 | DIAGNOSTIC IMAGING REPORT ---
C-SPINE ROUTINE 4 OR 5 VIEWS CLINICAL HISTORY: M54.2 Cervicalgia COMPARISON STUDY: No previous studies for comparison. FINDINGS: The prevertebral soft tissues are normal. No fractures or subluxations are visualized. There are moderate degenerative changes at the C5-6 and C6-7 levels with anterior and posterior osteophytic spurring. IMPRESSION: 1. No acute fractures or subluxations 2. Moderate degenerative changes at the C5-6 and C6-7 levels. Electronically signed by: Angelito Keating M.D. 03/21/2018 2:21 PM Dictated Date/Time: 03/21/2018 2:20 PM
== END | disposition home or self-care (01) ==
LOC: C.RAD1850 14:00
PROVIDERS: ATTEND Internal Medicine
DX: M54.2 Cervicalgia (principal)

== ENCOUNTER 2021-02-03 08:27 | Observation (INO) ==
--- NOTE | 2021-01-10 11:48 | PAT Medication Instructions ---
Medication Instructions Date of Service January 10, 2021 Home Medications Medication Instructions Recorded atorvastatin 80 mg tablet 80 mg PO HS #90 tab 12/23/19 losartan 50 mg tablet 50 mg PO QAM #90 tab 06/16/20 metformin 500 mg tablet 1,000 mg PO BID #360 tab 06/16/20 dulaglutide 0.75 mg/0.5 mL 0.75 mg SUBCUT .COMPLEX #2 ml 10/11/20 subcutaneous pen injector atorvastatin 80 mg tablet 80 mg PO HS levothyroxine 200 mcg PO QAM losartan 50 mg tablet 50 mg PO QAM metformin 500 mg tablet 1,000 mg PO BID dulaglutide 0.75 mg/0.5 mL subcutaneous pen injector 0.75 mg SUBCUT .COMPLEX multivitamin 1 tab PO QAM acetaminophen [Tylenol Extra Strength] 1,000 mg PO Q6H PRN cholecalciferol (vitamin D3) 50 mcg PO QAM cyanocobalamin (vitamin B-12) 1,000 mcg PO QAM ibuprofen 400 - 600 mg PO Q6H PRN Continue as directed dulaglutide 0.75 mg/0.5 mL subcutaneous pen injector 0.75 mg SUBCUT .COMPLEX ASK your surgeon for instructions ibuprofen 400 - 600 mg PO Q6H PRN DO NOT take the morning of surgery losartan 50 mg tablet 50 mg PO QAM metformin 500 mg tablet 1,000 mg PO BID multivitamin 1 tab PO QAM cholecalciferol (vitamin D3) 50 mcg PO QAM cyanocobalamin (vitamin B-12) 1,000 mcg PO QAM Take morning of surgery With a small sip of water, OTHERWISE NOTHING TO EAT OR DRINK AFTER MIDNIGHT: levothyroxine 200 mcg PO QAM acetaminophen [Tylenol Extra Strength] 1,000 mg PO Q6H PRN (okay to take up to 4 hours prior to surgery if needed) Take evening before surgery atorvastatin 80 mg tablet 80 mg PO HS metformin 500 mg tablet 1,000 mg PO BID acetaminophen [Tylenol Extra Strength] 1,000 mg PO Q6H PRN (if needed) Other Notes If you have any questions please call us at [phone] or [phone] or [phone] or [phone]
--- NOTE | 2021-01-11 10:51 | Anesthesiology Consultation ---
Date of Service January 11, 2021 Assessment & Plan (1) Encounter for pre-operative examination: - COVID screening: Per assessment on 01/11: Travel screen- Lives/works in [facility]. 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 Uses mask (as do the students)/follows strict COVID precaution guidelines. Patient was COVID positive 06/26/20 (Dx at [facility]). Symptoms at time of headache, fever, body aches, loss of taste, cough. Resolved/recovered at home. Patient fully vaccinated. No known COVID-19 positive contacts or current COVID-19 related symptoms. Surgeon arranging preop COVID testing. Awaiting results. - Check BSG AM DOS - Hx glidescope intubation: Right biceps tendon open repair (04/20/20): Grade view 3 > unable to view glottic opening with MAC#4 > [place]ub[place] without incidence with Glidescope #4[place] [facility] [place] Chart Review: Acceptable Risk for Surgery and Patient seen in Pre Admission Testing Teaching & Discussion Pre-Anesthesia Teaching/Discussion Notes: Instructed NPO after midnight before surgery,except medications with 15 cc of water. Medication instructions provided according to the PAT guidelines. History Surgery Operation Date: 02/03/21 07:15 Proposed Procedures p Left Total Knee Arthroplasty - Freddie Hardy DO Height/Weight Height: 6 ft 3 in Weight: 156.4 kg Allergies Allergy/AdvReac Type Severity Reaction Status Date / Time No Known Drug Allergies Allergy Unknown Verified 01/10/21 09:57 Medications Home Medications Medication Instructions Recorded Confirmed Last Taken atorvastatin 80 mg tablet 80 mg PO HS #90 tab 12/23/19 01/10/21 04/19/20 levothyroxine 200 mcg PO QAM 04/18/20 01/10/21 04/19/20 metformin 500 mg tablet 1,000 mg PO BID #360 tab 06/16/20 01/10/21 Unknown dulaglutide 0.75 mg/0.5 mL 0.75 mg SUBCUT .COMPLEX #2 ml 10/11/20 01/10/21 Unknown subcutaneous pen injector multivitamin 1 tab PO QAM 11/07/20 01/10/21 Unknown acetaminophen [Tylenol Extra 1,000 mg PO Q6H PRN 12/30/20 01/10/21 Unknown Strength] cholecalciferol (vitamin D3) 50 mcg PO QAM 12/30/20 01/10/21 Unknown cyanocobalamin (vitamin B-12) 1,000 mcg PO QAM 12/30/20 01/10/21 Unknown ibuprofen 400 - 600 mg PO Q6H PRN 12/30/20 01/10/21 Unknown Wheeled Walker #1 ea 01/11/21 Unknown losartan 50 mg PO HS 01/11/21 01/11/21 Unknown Past Medical History Medical History Diabetes mellitus, type 2 NIDDM History of COVID-19 Dx 06/26/20 ([facility]). Symptoms at time of headache, fever, body aches, loss of taste, cough. Resolved/recovered at home. Hyperlipidemia Hypertension Hypothyroidism Kidney stones hx Morbid obesity with BMI of 40.0-44.9, adult Osteoarthritis Sleep apnea CPAP (states that he wears consistently but that device will often fall off at night) Exercise / Class Metabolic Activity II 4-5 Yardwork/Stairs/Walk up hill Past Family History Family History Mother Dementia Family history of diabetes mellitus Denies family history of Ovarian cancer Prostate cancer Myocardial infarction Breast cancer Colorectal cancer Past Surgical History Surgical History (Updated 01/11/21 @ 13:52 by Jennifer Lin) H/O vasectomy History of arthroscopy Right x3 History of arthroscopy Left knee x2 History of colonoscopy History of surgery on arm Right biceps tendon open repair (04/20/20): Grade view 3 > unable to view glottic opening with MAC#4 > intubated without incidence with Glidescope #4, [place] [facility] [place]x of lithotripsy Past Anesthesia History Difficult Airway (Right biceps tendon open repair (04/20/20): Grade view 3 > unable to view glottic opening with MAC#4 > intubated without incidence with Glidescope #4, ETT 8.0 [place] [facility] [place] and No Family Hx of Anesthesia Complications History of PONV No Hx of Motion Sickness and History of PONV (Post-op nausea) Social History Smoking Status: Never smoker Do You Dip or Chew Tobacco: No Hx Alcohol Use: No Hx Substance Use: No substance use type: does not use Review of Systems Patient denies chest pain, shortness of breath, dyspnea on exertion, joint pain, reflux, cough, wheezing, palpitations. Physical Exam Vital Signs VITALS BP 132/77 P 80 TEMP SP02 95%RA RESP 18 PHYSICAL Full neck and c-spine range of motion. Full TMJ range of motion. TMD 3.5 finger breaths Mallampati Score 3 Dentition: intact Lungs: clear throughout to auscultation Cardiac: regular rate and rhythm, no murmurs noted Spine: normal Carotid arteries: negative bruit Extremities: no edema Short neck Testing Laboratory Results 01/11/21 11:23 01/11/21 11:23 PT 10.2 Seconds (9.0-12.0) 01/11/21 11:23 INR 1.0 (0.9-1.1) 01/11/21 11: APTT 27.7 Seconds (21.0-31.0) 01/11/21 11:23 Blood Type O Negative 01/11/21 11:23 Antibody Screen NEGATIVE 01/11/21 11:23 10/10/20 HGBA1C 6.4% Electrocardiogram Date: 04/19/20 Findings: + NSR @ (73) Chest X-Ray Date: 01/11/21 Findings: + NAD
--- NOTE | 2021-01-11 12:10 | XRay Report ---
XR chest Pre-admission PA/Lat HISTORY: Preop. Joint pain. COMPARISON: None. FINDINGS: The lungs are clear. Cardiac silhouette is normal in size. No pleural effusions. No pneumot horax. IMPRESSION: No acute process. ACT 112: Negative or not required by law. Electronically signed by: Casey North M.D. 01/11/2021 12:08 PM
[2021-01-11 12:26] LABS: Basophils # (auto) 0.02 K/uL (0-0.2); Basophils % (auto) 0.3 %; Eosinophils # (auto) 0.12 K/uL (0-0.5); Eosinophils % (auto) 1.7 %; Hematocrit (blood only) 41.9 % (42-52); Hemoglobin 13.9 g/dL (14.0-18.0); Immature Granulocytes # (auto) 0.02 K/uL (0.00-0.02); Immature Granulocytes % (auto) 0.3 %; Lymphocytes # (auto) 1.47 K/uL (1.2-3.4); Lymphocytes % (auto) 20.5 %; Mean Corpuscular Hemoglobin 27.7 pg (25-34); Mean Corpuscular Hgb Conc 33.2 g/dL (32-36); Mean Corpuscular Volume 83.6 fL (80-100); Monocytes # (auto) 0.38 K/uL (0.11-0.59); Monocytes % (auto) 5.3 %; Neutrophils # (auto) 5.15 K/uL (1.4-6.5); Neutrophils % (auto) 71.9 %; Platelet Count 217 K/uL (130-400); RDW Coefficient of Variation 13.7 % (11.5-14.5); RDW Standard Deviation 41.7 fL (36.4-46.3); Red Blood Count 5.01 M/uL (4.7-6.1); White Blood Count 7.16 K/uL (4.8-10.8)
[2021-01-11 12:41] LABS: Partial Thromboplastin Ratio 1.1; Partial Thromboplastin Time 27.7 Seconds (21.0-31.0); Prothrombin Time 10.2 Seconds (9.0-12.0)
[2021-01-11 13:14] LABS: BUN Creatinine Ratio 12.3 (10-20); Calcium 9.3 mg/dl (8.5-10.1); Creatinine Clr Calc Pharmacy 177.9 ml/min; Est GFR (African American) 122.6 ml/min; Est GFR (Non-African American) 105.7 ml/min; Potassium 4.5 mmol/L (3.5-5.1)
--- NOTE | 2021-02-02 15:56 | History & Physical Report ---
Date of Service February 02, 2021 Assessment & Plan (1) Osteoarthritis of left knee: We will proceed with a left total knee arthroplasty. Postoperatively he will be started on aspirin for DVT prophylaxis and kept overnight in the hospital for postoperative medical management. He plans to do physical therapy at [facility] upon discharge. History of Present Illness Chief Complaint: Osteoarthritis of the left knee. Primary Care Provider: Dharmesh Ennis MD Bassam is a pleasant 45-year-old male who is been doing with chronic increasing left knee pain. X-rays and clinical examination have been diagnostic for advanced osteoarthritis of the left knee. After failing years of conservative treatment, including arthroscopy, and years of injections, he has elected proceed with a left total knee arthroplasty.. Allergies Allergy/AdvReac Type Severity Reaction Status Date / Time No Known Drug Allergies Allergy Unknown Verified 01/10/21 09:57 Home Medications Medication Instructions Recorded Confirmed Type metformin 500 mg tablet 1,000 mg PO BID #360 tab 06/16/20 01/10/21 Rx dulaglutide 0.75 mg/0.5 mL 0.75 mg SUBCUT .COMPLEX #2 ml 10/11/20 01/10/21 Rx subcutaneous pen injector multivitamin 1 tab PO QAM 11/07/20 01/10/21 History acetaminophen [Tylenol Extra 1,000 mg PO Q6H PRN 12/30/20 01/10/21 History Strength] cholecalciferol (vitamin D3) 50 mcg PO QAM 12/30/20 01/10/21 History cyanocobalamin (vitamin B-12) 1,000 mcg PO QAM 12/30/20 01/10/21 History ibuprofen 400 - 600 mg PO Q6H PRN 12/30/20 01/10/21 History Wheeled Walker #1 ea 01/11/21 Rx losartan 50 mg PO HS 01/11/21 01/11/21 History atorvastatin 80 mg tablet 80 mg PO HS #90 tab 01/26/21 Rx levothyroxine 200 mcg tablet 200 mcg PO QAM #90 tab 01/26/21 Rx Past Med/Surg History Medical History Diabetes mellitus, type 2 NIDDM History of COVID-19 Dx 06/26/20 ([facility]). Symptoms at time of headache, fever, body aches, loss of taste, cough. Resolved/recovered at home. Hyperlipidemia Hypertension Hypothyroidism Kidney stones hx Morbid obesity with BMI of 40.0-44.9, adult Osteoarthritis Sleep apnea CPAP (states that he wears consistently but that device will often fall off at night) Surgical History H/O vasectomy History of arthroscopy Right x3 History of arthroscopy Left knee x2 History of colonoscopy History of surgery on arm Right biceps tendon open repair (04/20/20): Grade view 3 > unable to view glottic opening with MAC#4 > intubated without incidence with Glidescope #4, ETT 8.0 [place] [facility] [place] Hx of lithotripsy Family History Mother Dementia Family history of diabetes mellitus Denies family history of Ovarian cancer Prostate cancer Myocardial infarction Breast cancer Colorectal cancer Social History Smoking Status: Never smoker Second Hand Exposure: Yes (MOTHER SMOKED); Hx Alcohol Use: No Hx Substance Use: No Preferred Language: Frisian Communication Ability: Effective Visual Impairment: No Limitations Hearing Ability: Normal Sr Risk Management Consultant Required: Yes Beliefs That Will Affect Care: None marital status: Current Living Situation: Family current occupational status: employed current occupation: behavioral school counselors Feels Safe at Home: Yes Childhood Exposure to Second-Hand Smoke: No caffeine: Yes Dental Care, Regularly: Yes Physical Activity Frequency: 1-2 Times per Week Physical Activity Frequency Comment: walk Seatbelt Use: always Sunscreen Use: Yes Assistive Devices: Glasses Review of Systems All systems reviewed & are unremarkable except as noted in HPI & below. Physical Exam On physical examination of the left knee, he has a slight varus deformity. He has motion of 0 to 120 degrees. He has no instability. He has pain of the distal femoral condyles. Constitutional WD/WN, vitals as above Eyes PERRL, conjunctivae normal, anicteric sclerae ENMT external ear and nose normal, oropharynx normal Neck trachea midline, no thyromegaly Respiratory normal respiratory effort Cardiovascular RRR, no murmur, no edema Gastrointestinal (Abdomen) normal bowel sounds, soft, nontender, no hepatosplenomegaly Psychiatric A+Ox3, euthymic affect Results & Data Results & Data Laboratory Results . Diagnostic Findings X-rays of the left knee do show advanced osteoarthritis with joint space narrowing, osteophyte formation, and [id number] articulation. PG Care Time/CCT Total # of Minutes Spent Total Time Spent with Patient: Total time spent is greater than 50% in coordination of care (as documented) at patient's floor/unit and/or counseling patient: Coding Level of Care Code None Diagnoses Osteoarthritis of left knee M17.12
[~2021-02-03 08:27] MED LIST changes: +ACETAMINOPHEN 500 MG TAB PO SCH; -ATOR-26 PO; +BUPIVACAINE 0.5 % 5 MG/1 ML PF 10ML VIAL ONE; -BUPR150T7 PO; -ERGO500037 PO; +FAMOTIDINE 20 MG TAB PO SCH; +GABAPENTIN 900 MG DOSE PO SCH; -GLC/500 PO; -LEVO175T3 PO; -LOSA25TA18 PO; +LR 500ML BOLUS, THEN 15ML/HR IV SCH; +LR 60ML/HR IV SCH; -OMEG10007 PO; -OXYC-90 PO; -PRAM0.259 PO; +ROPIVACAINE 0.5% 5 MG/ML 30 ML VIAL ONE; +ROPIVACAINE 0.5% HCL/PF 150 MG, BUPIVACAINE 0.75% MPF 20 ML, EPINEPHrine 30MG/30ML (OR ... INSTIL SCH; -TAMS0.4C38 PO; +TRANEXAMIC ACID 1,000 MG **IV Intra-op IV SCH; +TRANEXAMIC ACID 1,000 MG **IV Pre-op IV SCH; +dexAMETHasone 4 MG TAB PO SCH
[2021-02-03] MEDS ORDERED: PROPOFOL IV EMULSION 10 MG/ML 20 ML VIAL IV ONE ×3 (09:32→12:43)
[2021-02-03] MEDS ORDERED: ONDANSETRON INJ 2 MG/ML 2 ML VIAL ONE (09:32)
[2021-02-03] MEDS ORDERED: LIDOCAINE 2% 2 ML VIAL/AMP(20MG/ML) INFIL ONE (09:32)
[2021-02-03] MEDS ORDERED: fentaNYL citrate 100 MCG/2 ML VIAL ONE (09:32)
[2021-02-03] MEDS ORDERED: MIDAZOLAM HCL 1 MG/ML 2ML VIAL ONE (09:32)
--- NOTE | 2021-02-03 10:16 | History & Physical Bridge Note ---
Date of Service February 03, 2021 History & Physical Bridge Note I have examined the patient, reviewed the History & Physical and in the interval since the performance of the History & Physical I have noted the following changes of clinical significance: no changes noted
[2021-02-03] MEDS ORDERED: ONDANSETRON INJ 2 MG/ML 2 ML VIAL IV PRN ×2 (10:33→14:28)
[2021-02-03] MEDS ORDERED: KETOROLAC 30 MG/ML VIAL IV PRN (10:33)
[2021-02-03] MEDS ORDERED: HYDROmorphone INJ 1 MG/ML SYRINGE IV PRN (10:33)
[2021-02-03] MEDS ORDERED: ATROPINE SULFATE 0.1 MG/ML 10ML SYR IV PRN (10:33)
[2021-02-03] MEDS ORDERED: ePHEDrine sulfate 50 MG/ML AMP IV PRN (10:33)
[2021-02-03] MEDS ORDERED: ORTHO JOINT ANESTHETIC ONE (10:43)
[2021-02-03] MEDS ORDERED: KETAMINE 50 MG/5 ML SYRINGE ONE (11:30)
--- NOTE | 2021-02-03 12:39 | Operative Report ---
PG Post Operative Report Pre & Post Diagnosis Operation Date: 02/03/21 10:50 Pre-Op Diagnosis: Degenerative joint disease left knee Post-Op Diagnosis: Degenerative joint disease left knee I identified the patient and participated in the time-out.: Yes Procedure Operation Date: 02/03/21 10:50 Actual Procedures p Left Total Knee Arthroplasty, Cemented(Left) with increased difficulty due to a BMI of 43.1. (Modifier 22)- Freddie Hardy DO Surgeon Freddie Hardy DO Adoption Specialist Freddie Real PAC Estimated Blood Loss 10 Findings Consistent with Post-Op Diagnosis Specimens Left femoral and tibial bone Complications none Disposition Disposition: Recovery Room Indications Bassam is a pleasant 45-year-old male who is been dealing with chronic increasing left knee pain. MRI, x-rays, and physical examination were diagnostic for advanced osteoarthritis of the left knee. He has failed years of conservative treatment including arthroscopy. After failing enough conservative treatment, he elected proceed with a left total knee arthroplasty. Description of Procedure Modifier 22: This case took about 50% longer than a standard knee replacement due to his BMI of 43.1. This caused increased retraction and dissection time as well as more difficulty with exposure. Implants used: I used a Maureen Persona total knee arthroplasty system with a size 12 standard femur, J tibia, 32 patella, and a size 12 medial congruent polyethylene bearing. All components were cemented in place with Simplex HV cement. Bassam arrived [facility] for the above procedure. He was seen in the preoperative holding area and the operative extremity was identified and signed. He was given a preoperative antibiotic, TXA, a spinal anesthetic and an adductor nerve block. He was taken back to the operating room and laid on the table in supine position. He was given basic sedation. The operative knee was then prepped and draped in sterile fashion. A timeout was done, and the patient and the operative extremity was properly identified. A midline incision was made directly over the patella. Dissection was taken down to the extensor mechanism. A subvastus arthrotomy was used. The medial retinaculum was released and the fat pad was mostly excised. The knee was flexed and the ACL, PCL, and meniscus were removed. A drill was sent down the center of the femoral canal followed by an intramedullary zechariah. Off that zechariah a distal femoral cutting block was placed. 9 mm was resected off the distal femur at 5 of valgus. A posterior referencing AP sizing guide was then placed on the distal femur. The femur measured to be a size 12. 2 drill holes were placed in 3 of external rotation. A 4-in-1 cutting block was then impacted into place. Anterior, posterior, and chamfer cuts were then made. The proximal tibia was then exposed. An external tibial alignment guide was placed. A tibial cut guide was then anchored in place and the proximal tibia was then resected. The posterior aspect of the knee was then opened up and any additional meniscus fragments and osteophytes were removed. The tibia measured to be a size J. The tibial plate was then placed in the appropriate rotation and the tibia was drilled and punched. Trial components were then placed. I used a size 12 medial congruent polyethylene insert. The knee was brought through a full range of motion and felt to be stable. The peg holes for the femoral component were then drilled. The patella was then everted and 9 mm was resected off the posterior aspect of the patella. The patella measured to be a size 32. 3 peg holes were then drilled. A trial patella was placed. The knee was once again brought through a full range of motion and felt to be stable. Trial components were then removed. The surrounding soft tissues were injected with 100 cc of an orthopedic pain control cocktail. All components were then cemented into place with Simplex HV cement. The final polyethylene insert was then snapped into place. Once cement was dry the tourniquet was deflated. Hemostasis was obtained. A dilute betadyne lavage was then done for 3 minutes. The joint was then irrigated with normal saline solution. The subvastus arthrotomy was then closed with #1 Vicryl suture. The skin was closed with 2-0 Vicryl, 3-0V lock suture, and sabine. A soft compressive dressing was placed. He was then transferred to a hospital bed and taken to the postanesthesia care unit in stable condition. He tolerated the procedure well. Freddie Real PA-C, was present for the entire procedure. He was critical for patient positioning, prepping, draping, retraction exposure, wound closure and application of sterile dressing. I attest to the content of the Intraoperative Record and any orders documented therein. Any exceptions are noted below.
--- NOTE | 2021-02-03 13:31 | Anesthesiology Progress Note ---
Date of Service February 03, 2021 Anesthesia Post Procedure Vital Signs Vital Signs: Temp Pulse Pulse Resp BP Pulse Ox 02/03/21 13:25 80 12 103/70 91 02/03/21 13:15 79 16 108/67 92 02/03/21 13:08 36.0 C L 88 16 120/77 92 02/03/21 09:14 36.8 C 95 H 18 135/83 98 Pain Intensity Right Lower Leg: Pain Intensity: 3 Transfer of Care Handoff Completed per policy Notes Mental Status: alert / awake / arousable Patient Amnestic to Procedure: Yes Nausea / Vomiting: adequately controlled Pain: adequately controlled Airway Patency, RR, SpO2: stable & adequate BP & HR: stable & adequate Hydration State: stable & adequate Anesthetic Complications: no major complications apparent
--- NOTE | 2021-02-03 13:46 | XRay Report ---
XR knee LT 1 or 2V routine CLINICAL HISTORY: Surgical Post Op COMPARISON: None. DISCUSSION: There are postsurgical changes of a total left knee arthroplasty and patellar resurfacing . Femoral tibial components appear well seated. Overlying skin sabine are visualized. There is gas w ithin the soft tissues consistent with recent surgery IMPRESSION: Postsurgical changes of a total left knee arthroplasty. ACT 112: Negative or not required by law. Electronically signed by: Angelito Keating M.D. 02/03/2021 1:44 PM
[2021-02-03] MEDS ORDERED: NALOXONE HCL 0.4 MG/1 ML VIAL/CARP IV PRN (14:28)
[2021-02-03] MEDS ORDERED: METOCLOPRAMIDE HCL INJ 5 MG/ML 2 ML VIAL IV PRN (14:28)
[2021-02-03] MEDS ORDERED: MAGNESIUM HYDROXIDE SUSP 30 ML UDC PO PRN (14:28)
[2021-02-03] MEDS ORDERED: HYDROmorphone INJ 0.5 MG/0.5 ML SYR IV PRN (14:28)
[2021-02-03] MEDS ORDERED: oxyCODONE HCL IR 5 MG TAB (IMMEDIATE RELEASE) PO PRN (14:28)
[2021-02-03] MEDS ORDERED: bisacodyL 10 MG SUPP PR PRN (14:28)
[2021-02-03] MEDS ORDERED: PHARMACY GLYCEMIC MGMT CONSULT PRN (14:41)
[2021-02-03] MEDS ORDERED: GLUCAGON FOR INJ 1 MG VIAL IM PRN (14:45)
[2021-02-03] MEDS ORDERED: GLUCOSE 40% GEL 15 GM TUBE PO PRN (14:45)
[2021-02-03] MEDS ORDERED: DEXTROSE 50% 50 ML SYRINGE IV PRN (14:45)
[2021-02-03] MEDS ORDERED: GLUCOSE 10 TABS/TUBE PO PRN (14:45)
[2021-02-03] MEDS ORDERED: CARBOHYDRATES FOR HYPOGLYCEMIA PO PRN (14:45)
--- NOTE | 2021-02-03 15:35 | Pharmacy Report ---
Pharmacy Glycemic Short Note 2 - Date of Service February 03, 2021 - Glycemic Short BSG Results (Last 24 hours): 02/03/21 02/03/21 08:41 13:21 POC Glucose 98 122 H OUTPATIENT ANTIDIABETIC REGIMEN: * Metformin 1000 mg PO BIDM * HbA1c: 6.4% (10/10/20) ASSESSMENT: * MW is a 45 year old male POD #0 s/p left total knee arthroplasty * Received 8 mg PO dexamethasone and intra-articular ortho mix (containing dexamethasone) * Preop BSG of 98 mg/dL, postop BSG of 122 mg/dL * Will hold off on basal given A1c and low BSG postop, manage with q4h Novolog today PLAN FOR INPATIENT GLYCEMIC CONTROL: * Hold outpatient oral diabetes medications * likely resume in AM * Basal insulin * hold for now * Bolus insulin * NovoLog per scale ACHS or Q6hrs while NPO * Goal Range: Low 110 mg/dL - High 140 mg/dL * Correction Factor: 20 mg/dL/unit * Nutritional / Prandial insulin per carb ratio of 1 unit per 7 grams CHO consumed * ,04 checks with same parameters PLAN FOR DISCHARGE: * HbA1c of 6.4% suggests excellent outpatient glycemic control * Continue outpatient metformin at discharge
[2021-02-03] MEDS: SODIUM CHLORIDE 0.9% 1000ML 1,000 ML IV SCH (15:53)
[2021-02-03] MEDS: KETOROLAC 30 MG/ML VIAL IV SCH ×2 (15:53→21:09)
[2021-02-03] MEDS: INSULIN ASPART 100 UNITS/ML 3 ML PEN SC SCH ×3 (17:57→23:55)
[2021-02-03] MEDS: ceFAZolin 2000MG 2,000 MG/15 ML SYR IV SCH (18:00)
[2021-02-03] MEDS ORDERED: LOSARTAN POTASSIUM 50 MG TAB PO SCH (21:00)
[2021-02-03] MEDS ORDERED: ATORVASTATIN 40 MG TAB PO SCH (21:00)
[2021-02-03] MEDS ORDERED: SENNA 8.6 MG TAB PO SCH (21:00)
[2021-02-03] MEDS: ASPIRIN 81 MG ECTAB PO SCH (21:07)
[2021-02-03] MEDS: DOCUSATE SODIUM 100 MG CAP PO SCH (21:08)
[2021-02-03] MEDS: ACETAMINOPHEN 500 MG TAB PO SCH (21:09)
[2021-02-04] MEDS: SODIUM CHLORIDE 0.9% 1000ML 1,000 ML IV SCH (01:40)
[2021-02-04] MEDS: KETOROLAC 30 MG/ML VIAL IV SCH ×2 (03:07→10:57)
[2021-02-04] MEDS: ceFAZolin 2000MG 2,000 MG/15 ML SYR IV SCH (03:07)
[2021-02-04] MEDS: INSULIN ASPART 100 UNITS/ML 3 ML PEN SC SCH ×3 (04:59→12:54)
[2021-02-04] MEDS: ACETAMINOPHEN 500 MG TAB PO SCH (05:39)
[2021-02-04] MEDS ORDERED: LEVOTHYROXINE SODIUM 200 MCG TABLET PO SCH (06:30)
--- NOTE | 2021-02-04 07:32 | Orthopedic Progress Note ---
Date of Service February 04, 2021 Assessment & Plan (1) Status post left knee replacement: Overall is doing well. Is not having much pain in the left knee. He will be seen by physical therapy today for ambulation and range of motion exercises. He is on aspirin for DVT prophylaxis. He is wearing his ATILIO hose stockings. He can be discharged home later today. He will follow-up with orthopedics in 2 weeks. Subjective Bassam was seen and examined at bedside this morning. Overall is doing very well. He does not have much pain in his left knee. He got up to ambulate a little bit yesterday but his knee buckled because of the spinal block. He has not been up yet today. He was able to get some good sleep last night and has no complaints.. Review of Systems All systems reviewed & are unremarkable except as noted in HPI & below. Physical Exam On physical examination of the left knee, the dressing is clean and dry. His leg is out in full extension. He has active dorsiflexion and plantarflexion of his left ankle.. Results & Data Results & Data Laboratory Results . Diagnostic Findings Postoperative x-rays of the left knee show the prosthesis to be in anatomic alignment without any evidence of fracture, dislocation, or loosening. PG Care Time/CCT Total # of Minutes Spent Total Time Spent with Patient: Total time spent is greater than 50% in coordination of care (as documented) at patient's floor/unit and/or counseling patient: Coding Level of Care Code 68659 Post Operative Follow-Up Diagnoses Status post left knee replacement Z96.652
--- NOTE | 2021-02-04 07:33 | Discharge Summary ---
Date of Service February 04, 2021 Admission HPI (Per Admitting) Bassam is a pleasant 45-year-old male who is been doing with chronic increasing left knee pain. X-rays and clinical examination have been diagnostic for advanced osteoarthritis of the left knee. After failing years of conservative treatment, including arthroscopy, and years of injections, he has elected proceed with a left total knee arthroplasty.. Admission Exam (Per Admitting) On physical examination of the left knee, he has a slight varus deformity. He has motion of 0 to 120 degrees. He has no instability. He has pain of the distal femoral condyles. Principal Diagnosis Same as "Discharge Diagnosis" noted below under Discharge Instructions. Discharge Exam On physical examination of the left knee, the dressing is clean and dry. His leg is out in full extension. He has active dorsiflexion and plantarflexion of his left ankle.. Discharge Data Procedures Performed Operation Date: 02/03/21 10:50 Actual Procedures p Left Total Knee Arthroplasty, Cemented(Left) - Freddie Hardy DO Ordered Studies 02/03/21 05:00 US - OR guided needle placemen Routine Hospital Course (1) Status post left knee replacement: On 02/03/[address] [facility] and underwent a left knee replacement without complication. He had a spinal anesthetic. Postoperatively he was started on aspirin for DVT prophylaxis and transferred to the general orthopedic floors. His hospital course was uneventful. On postop day #1 his vital signs were stable and his pain was well controlled. He was able to participate well with physical therapy doing ambulation and range of motion exercises. He was then discharged home. He will follow-up with orthopedics in 2 weeks. PG Care Time/CCT Total # of Minutes Spent Total Time Spent with Patient: Total time spent is greater than 50% in coordination of care (as documented) at patient's floor/unit and/or counseling patient: Discharge Plan Discharge Items Patient Disposition: Home - Home Health Services Reason For Visit: DJD Knee Left Discharge Diagnosis: Left knee replacement Activity: As commented below Non-emergency contact: Surgeon Call non-emergency contact if: your wound has increased redness and your wound has increased drainage Follow-up/Referrals: Sundeep Ennis MD [Primary Care Provider] - Diet: Carb Consistent or DM2 Addtl Attending Provider Instructions: Activity and Therapy Recommendations: * If you are using [facility] then therapy will be provided at your home until they feel you have accomplished all of your goals. * If you are using [facility] then Physical Therapy will be provided until they feel you are ready to start Outpatient Physical Therapy. * If you are not using home therapy then Outpatient Physical Therapy should start about 3-5 days from your day of surgery. Therapy will last about 6-10 weeks * It is important not to put a pillow under your knee when you are relaxing or sleeping. It is just as important to make sure you are getting your knee perfectly straight as it is to regain your knee bend. * You were shown a series of exercises in the hospital. Do these exercises three times each day including the exercises you were shown in physical therapy. * Get up and walk several times each day. For the first four weeks, try not to stand or walk for more than one hour at a time. If you do stand or walk for more than one hour, you will not hurt anything, but your leg will likely swell. * As you feel comfortable, you may change from the walker or crutches to a cane and then to independent walking. Medications: * Narcotic You will likely be sent home from the hospital with a prescription for the narcotic pain medication that worked best throughout your stay. * Aspirin Most patients will be required to take Aspirin 81mg twice a day for 6 weeks after surgery. This is obtained [id number] and a prescription is not necessary. * Other medications may be prescribed for specific circumstances. If you have any questions, please call the office at . * Resume previous home medications unless otherwise instructed TEDs/Elastic Stockings: The white elastic stockings help limit swelling and prevent blood clots from forming in your legs.~ The more you wear them, the more they work. Wear them for six weeks. Dressing Care: The dressing can be changed after physical therapy on postop day #1. Daily dry dressing changes for a few days, especially if the incision is still draining some. If the incision is not draining then you may leave the sabine open to air. If there is a little bit of drainage or if the sabine are getting stuck on your clothing then cover the incision with a dry dressing. The sabine will be removed at your 2 week follow-up appointment. Showering: You may shower 5 days from the day of surgery as long as the incision is no longer draining. You may shower with the sabine exposed. Let soapy water run over the sabine and pat them dry. Do not scrub or soak the incision. Things To Watch For: * Drainage from the incision site that occurs more than one week after your surgery. * Increased redness at the incision site. * Fever above 102 degrees Fahrenheit. * Unusual chest pain or shortness of breath. * Call [facility] at with any of the above problems Follow-Up Visit: Follow-up with Dr. Hardy's PA (Freddie Real) 2-3 weeks after your day of surgery. He will remove your sabine and answer any questions. If you have any additional questions or concerns, Dr Hardy is usually in the office at the same time and will be available An appointment was probably scheduled when you signed-up for surgery in the office. If you have any questions call Office Instructions: More detailed instructions as well as Frequently Asked Questions were provided in a folder by our office when you signed-up for surgery. Please review these instructions when you get home. If you have any further questions or concerns, please feel free to call the office at [phone] Pending Studies at Discharge: No Stand-Alone Forms: My [facility] Medications and DC Order Prescriptions: New oxycodone 5 mg Tablet 5 mg PO Q4H PRN (Reason: pain) Qty: 60 RF: 0 aspirin 81 mg Tablet,Delayed Release (Dr/Ec) 81 mg PO BID 42 Days Qty: 0 RF: 0 Continued metformin 500 mg tablet 1,000 mg PO BID Qty: 360 RF: 3 Trulicity 0.75 mg/0.5 mL pen injector 0.75 mg subcut .COMPLEX Qty: 2 RF: 5 (DME) Dannie Walker Misc See Rx Instructions .MEDSUPPLY Qty: 1 RF: 0 atorvastatin [Lipitor] 80 mg tablet 80 mg PO HS Qty: 90 RF: 3 levothyroxine 200 mcg tablet 200 mcg PO QAM Qty: 90 RF: 3 multivitamin Tablet 1 tab PO QAM RF: 0 cholecalciferol (vitamin D3) 50 mcg (2,000 unit) capsule 50 mcg PO QAM RF: 0 cyanocobalamin (vitamin B-12) 1,000 mcg capsule 1,000 mcg PO QAM RF: 0 ibuprofen 200 mg Capsule 400 - 600 mg PO Q6H PRN (Reason: Pain) RF: 0 acetaminophen [Tylenol Extra Strength] 500 mg Capsule 1,000 mg PO Q6H PRN (Reason: Pain) RF: 0 losartan 50 mg tablet 50 mg PO HS RF: 0 Discharge Orders: Discharge Order (Routine); Ordered 02/04/21 Ordered By: Freddie Hardy Admission Data Admit Date/Time: 02/03/21 13:09 Attending Provider: Freddie Hardy Admit Provider: Freddie Hardy Primary Care Provider: Sundeep Ennis
[2021-02-04] MEDS: ASPIRIN 81 MG ECTAB PO SCH (08:48)
[2021-02-04] MEDS: DOCUSATE SODIUM 100 MG CAP PO SCH (08:48)
[2021-02-04] MEDS ORDERED: MULTIVITAMIN TAB PO SCH (09:00)
== END 2021-02-04 13:11 | disposition home health service (06) ==
LOC: ASU 08:27 → 3E 08:27